=== PATIENT | male | born 1935 | race Caucasian/White ===

== ENCOUNTER 2016-10-16 09:01 | Inpatient (IN) | payer MEDICARE ==
[2016-10-16] VITALS (13 sets, daily range): BP systolic 121–174; BP diastolic 57–81; PULSE 47–66; RESP 18–20; TEMP 97.4–98.2; O2SAT 96–100
[~2016-10-16] VITALS: Ht 182.9 cm; Wt 83.3 kg
[~2016-10-16 09:01] MED LIST: ASPI81 PO; ATEN-100 PO; CALTTAB PO; FURO20 PO; GALA4 PO; GLUCTAB PO; LOSA25TA31 PO; MAGN400T PO; POTA-243 PO; PROP1TAB PO; PROT40TA PO; TAB-TAB PO; TAMS0.4C67 PO
[2016-10-16] MEDS ORDERED: SODIUM CHLORIDE 0.9% FLUSH 5 ML FLUSH IVF PRN (10:00)
[2016-10-16 10:17] LABS: BASOPHIL % 0.7 % (0.0-2.0); EOSINOPHIL # 0.1 TH/MM3 (0-0.4); HEMATOCRIT 38.3 % (39.0-51.0); HEMO FLAGS DIFF FINAL; LYMPH % 14.7 % (9.0-44.0); LYMPHOCYTE # 0.8 TH/MM3 (1.0-4.8); MEAN CELL VOLUME 87.4 FL (80.0-100.0); MEAN CORPUSCULAR HEMOGLOBIN 29.3 PG (27.0-34.0); MEAN CORPUSCULAR HGB CONC 33.5 % (32.0-36.0); NEUT % 75.6 % (16.0-70.0); PLATELET COUNT 159 TH/MM3 (150-450); RED BLOOD COUNT 4.38 MIL/MM3 (4.50-5.90); RED CELL DISTRIBUTION WIDTH 13.3 % (11.6-17.2); WHITE BLOOD COUNT 5.3 TH/MM3 (4.0-11.0)
[2016-10-16 10:25] LABS: PROTHROMBIN TIME - PATIENT 11.3 SEC (9.8-11.6)
--- NOTE | 2016-10-16 10:30 | RADRPT ---
EXAM DATE/TIME: 10/16/2016 10:05 [facility] COMPARISON: CT BRAIN W/O CONTRAST, February 12, 2016, 15:57. INDICATIONS : Dizziness. Confusion. Chest pressure. Evaluate for cerebral vascular accident. RADIATION DOSE: 56.38 CTDIvol (mGy) MEDICAL HISTORY : Cardiovascular disease. Aneurysm, abdominal. Diabetes mellitus type 2.Hypertension. SURGICAL HISTORY : None. ENCOUNTER: Initial ACUITY: 1 day PAIN SCALE: 0/10 LOCATION: cranial TECHNIQUE: Multiple contiguous axial images were obtained of the head. Using automated exposure control and adj ustment of the mA and/or kV according to patient size, radiation dose was kept as low as reasonably a chievable to obtain optimal diagnostic quality images. FINDINGS: CEREBRUM: There is mild cerebral atrophy. Ventricles are normal in size. There is mild periventricular white ma tter low-attenuation that is stable. No evidence of midline shift, mass lesion, hemorrhage or acute infarction. No extra-axial fluid collections are seen. POSTERIOR FOSSA: The cerebellum and brainstem are intact. The 4th ventricle is midline. The cerebellopontine angle i s unremarkable. EXTRACRANIAL: The visualized portion of the orbits is intact. SKULL: The calvaria is intact. No evidence of skull fracture. CONCLUSION: Stable noncontrast head CT. No acute intracranial abnormality is identified. Darrian Deutsch MD on October 16, 2016 at 10:26 Board Certified Radiologist. This report was verified electronically.
[2016-10-16 10:32] LABS: POTASSIUM 4.1 MEQ/L (3.5-5.1)
--- NOTE | 2016-10-16 10:40 | PD ---
HPI Chief Complaint: Dizziness Time Seen by Provider: 09:43 Travel History International Travel<30 days: No Contact w/Intl Traveler<30days: No Traveled to known affect area: No History of Present Illness HPI 81-year-old male came to the emergency room brought by his with history of chest pressure radiating to his neck and some dizziness. This started this morning. His says he has history of dementia and every now and then complains of dizziness. He requires a cane to ambulate. However the chest pressure was different. He has history of coronary artery disease with quadruple bypass that was done about 4 years ago. His color looked okay. He seemed a little more confused than his usual. was concerned and called patient's janitorial assistant but was unable to get anybody. She called the primary care doctor's office and the nurse asked him to come to the emergency room. Here patient is awake and at his baseline as per the . Vital signs are stable. Is not complaining of any pain currently. He knows where he is but not fully oriented to the time. Unknown aggravating or relieving factors. PFSH Past Medical History Narrative Medical List of his past medical, surgical, social and family history was reviewed from the nursing note. Hx Anticoagulant Therapy: Yes AAA: Yes Cardiovascular Problems: Yes (BYPASS) Chemotherapy: No Cerebrovascular Accident: No Diabetes: Yes Patient Takes Glucophage: Yes (METFROMIN) Diminished Hearing: Yes (BILATERAL ) Endocrine: Yes (DIABETES) Gastrointestinal Disorders: No Genitourinary: No Hypertension: Yes Immune Disorder: No Musculoskeletal: No Neurologic: No Psychiatric: Yes (ETOH ABUSE) Reproductive: No Respiratory: Yes Immunizations Current: Yes Myocardial Infarction: Yes Past Surgical History Cardiac Surgery: Yes (BYPASS ) Pacemaker: No Tonsillectomy: Yes Other Surgery: No Social History Alcohol Use: No Tobacco Use: No Substance Use: No Allergies-Medications (Allergen,Severity, Reaction): Coded Allergies: Scopolamine (Verified Allergy, Severe, NAUSEA/VOMITING, 10/16/16) Omeprazole (Verified Allergy, Unknown, 10/16/16) Xanax (Verified Allergy, Unknown, 10/16/16) POSSIBLE CONFUSION Epinephrine (Verified Adverse Reaction, Severe, SEVERE SHAKING, 10/16/16) Comments List of his allergies are reviewed from the nursing note. Reported Meds & Prescriptions Reported Meds & Active Scripts Active Reported Aspir-81 (Aspirin) 81 Mg Tabdr 81 Mg PO HS Calcium 600 + D (Calcium Carbonate-Vitamin D) 600-400 Mg-Unit Tab 1 Tab PO BID Finasteride 5 Mg Tab 5 Mg PO DAILY Do not crush. Lasix (Furosemide) 20 Mg Tab 20 Mg PO DAILY Galantamine (Galantamine Hydrobromide) 8 Mg Tab 8 Mg PO BID Losartan (Losartan Potassium) 50 Mg Tab 50 Mg PO HS Magnesium Oxide 400 Mg Tab 400 Mg PO DAILY Metformin (Metformin HCl) 500 Mg Tab 500 Mg PO DAILY With a meal Multi Vitamin (Multiple Vitamin) 1 Tab Tab 1 Tab PO DAILY Pantoprazole (Pantoprazole Sodium) 40 Mg Tab 40 Mg PO DAILY K-Tab (Potassium Chloride) 20 Meq Tab 20 Meq PO DAILY Tamsulosin (Tamsulosin HCl) 0.4 Mg Cap 0.4 Mg PO HS Clopidogrel (Clopidogrel Bisulfate) 75 Mg Tab 75 Mg PO DAILY Narrative Medication List of his home medications reviewed from the nursing note. Review of Systems Except as stated in HPI: all other systems reviewed are Neg Physical Exam Narrative GENERAL: Awake, alert, elderly, no obvious distress SKIN: Warm and dry. HEAD: Atraumatic. Normocephalic. EYES: Pupils equal and round. No scleral icterus. No injection or drainage. ENT: No nasal bleeding or discharge. Mucous membranes pink and moist. NECK: Trachea midline. No JVD. CARDIOVASCULAR: Regular rate and rhythm. No murmur appreciated. RESPIRATORY: No accessory muscle use. Clear to auscultation. Breath sounds equal bilaterally. GASTROINTESTINAL: Abdomen soft, non-tender, nondistended. Hepatic and splenic margins not palpable. MUSCULOSKELETAL: No obvious deformities. No clubbing. No cyanosis. No edema. NEUROLOGICAL: Awake and alert. No obvious cranial nerve deficits. Motor grossly within normal limits. Normal speech. PSYCHIATRIC: Appropriate mood and affect; insight and judgment normal. Data Data Last Documented VS Orders Electrocardiogram (10/16/16 ) Prothrombin Time / Inr (Pt) (10/16/16 09:55) Complete Blood Count With Diff (10/16/16 09:55) Basic Metabolic Panel (Bmp) (10/16/16 09:55) Troponin I (10/16/16 09:55) Urinalysis - C+S If Indicated (10/16/16 09:55) Ct Brain W/O Iv Contrast(Rout) (10/16/16 09:55) Chest, Single Ap (10/16/16 09:55) Ecg Monitoring (10/16/16 09:55) Iv Access Insert/Monitor (10/16/16 09:55) Oximetry (10/16/16 09:55) Sodium Chloride 0.9% Flush (Ns Flush) (10/16/16 10:00) Admit Order (Ed Use Only) (10/16/16 11:09) Labs MDM Medical Decision Making Medical Screen Exam Complete: Yes Emergency Medical Condition: Yes Medical Record Reviewed: Yes Interpretation(s) Twelve-lead EKG was reviewed by me. Normal sinus rhythm, left axis deviation, interventricular conduction delay, bradycardia, first-degree AV block, poor R- wave progression, nonspecific ST-T wave changes. Heart rate of 47 bpm. Differential Diagnosis ACS, non-STEMI, symptomatic bradycardia Narrative Course 11 AM blood test results of back and within normal limits. His mentioned that his heart rate usually runs in the 50s to 60s and 40s is low for him. It could be symptomatic bradycardia. However given his coronary artery disease history I would prefer to admit him at least for observation. I've explained this to his understands. CAT scan results came back and was within normal limit. Awaiting for the hospitalist to call back. Procedures EKG Prior to Arrival: Yes Diagnosis Primary Impression: Chest pain Qualified Code: R07.9 - Chest pain, unspecified type Additional Impressions: Dizziness Symptomatic bradycardia Admitting Information Admitting Physician Requests: Admit Scripts Atenolol 25 Mg Tab12.5 Mg PO DAILY #30 TAB Ref 0 Prov:Mitchell Myers MD 10/17/16 Kraig Restrepo MD Oct 16, 2016 10:40 Basophils (%) (Auto) 0.7 % Neutrophils # (Auto) 4.0 TH/MM3 Lymphocytes # (Auto) 0.8 TH/MM3 Monocytes # (Auto) 0.4 TH/MM3 Eosinophils # (Auto) 0.1 TH/MM3 Basophils # (Auto) 0.0 TH/MM3 CBC Comment DIFF FINAL Differential Comment Prothrombin Time 11.3 SEC Prothromb Time International 1.0 RATIO Ratio Sodium Level 135 MEQ/L Potassium Level 4.1 MEQ/L Chloride Level 99 MEQ/L Carbon Dioxide Level 29.0 MEQ/L Anion Gap 7 MEQ/L Blood Urea Nitrogen 17 MG/DL Creatinine 1.28 MG/DL Estimat Glomerular Filtration 54 ML/MIN Rate Random Glucose 104 MG/DL Calcium Level 8.9 MG/DL Troponin I 0.02 NG/ML [facility] Medical Decision Making Medical Screen Exam Complete: Yes Emergency Medical Condition: Yes Medical Record Reviewed: Yes Interpretation(s) Twelve-lead EKG was reviewed by me. Normal sinus rhythm, left axis deviation, interventricular conduction delay, bradycardia, first-degree AV block, poor R- wave progression, nonspecific ST-T wave changes. Heart rate of 47 bpm. Differential Diagnosis ACS, non-STEMI, symptomatic bradycardia Narrative Course 11 AM blood test results of back and within normal limits. His mentioned that his heart rate usually runs in the 50s to 60s and 40s is low for him. It could be symptomatic bradycardia. However given his coronary artery disease history I would prefer to admit him at least for observation. I've explained this to his understands. CAT scan results came back and was within normal limit. Awaiting for the hospitalist to call back. Procedures EKG Prior to Arrival: Yes Diagnosis Primary Impression: Chest pain Qualified Code: R07.9 - Chest pain, unspecified type Additional Impressions: Dizziness Symptomatic bradycardia Admitting Information Admitting Physician Requests: Admit Kraig Restrepo MD Oct 16, 2016 10:40 Kraig Restrepo MD Oct 16, 2016 10:40
--- NOTE | 2016-10-16 10:42 | RADRPT ---
EXAM DATE/TIME: 10/16/2016 10:10 [facility] COMPARISON: CT THORAX W/O CONTRAST, November 22, 2013, 16:39. CHEST SINGLE AP, February 12, 2016, 15:29. CHEST PA & LA T, December 17, 2013, 10:23. CHEST SINGLE AP, March 22, 2016, 17:57. INDICATIONS : Chest pains with shortness of breath. MEDICAL HISTORY : Myocardial infarction. SURGICAL HISTORY : CABG. ENCOUNTER: Initial ACUITY: 1 day PAIN SCORE: 5/10 LOCATION: Bilateral chest FINDINGS: AP views of the chest demonstrate normal-sized cardiac silhouette with calcification of the aorta. Pa tient is post median sternotomy and CABG. There is stable left chest wall changes with old rib fractu res and there is stable blunting left costophrenic sulcus. No airspace consolidation or pneumothorax is visualized. Bones demonstrate no acute finding. CONCLUSION: Stable chest x-ray with old left rib fractures and chronic left pleural thickening or scarring. No ac [place] cardiopulmonary abnormality is identified. Darrian Deutsch MD on October 16, 2016 at 10:38 Board Certified Radiologist. This report was verified electronically.
[2016-10-16] MEDS ORDERED: CLOP75TA PO (11:54)
[2016-10-16] MEDS ORDERED: TAMS0.4C4 PO (11:54)
[2016-10-16] MEDS ORDERED: POTA1TAB4 PO (11:54)
[2016-10-16] MEDS ORDERED: MULT-135 PO (11:54)
[2016-10-16] MEDS ORDERED: PANT40TA3 PO (11:54)
[2016-10-16] MEDS ORDERED: METF500T PO (11:54)
[2016-10-16 11:55] LABS: BLOOD, URINE NEG (NEG); GLUCOSE,URINE NEG (NEG); KETONE, URINE NEG (NEG); NITRITE,URINE NEG (NEG); URINE COLOR LIGHT-YELLOW (YELLW/STRAW)
[2016-10-16 11:59] LABS: COMMENT (UR) CULT NOT INDICATED; CULTURE IF INDICATED CULT NOT INDICATED
[2016-10-16] MEDS ORDERED: FINA5TAB2 PO (11:59)
[2016-10-16] MEDS ORDERED: MAGN400T2 PO (11:59)
[2016-10-16] MEDS ORDERED: GALA8TAB PO (11:59)
[2016-10-16] MEDS ORDERED: FURO1TAB62 PO (11:59)
[2016-10-16] MEDS ORDERED: CALCTAB70 PO (11:59)
[2016-10-16] MEDS ORDERED: LOSA50TA PO (11:59)
[2016-10-16] MEDS ORDERED: ASPI81TA81 PO (11:59)
[2016-10-16] MEDS ORDERED: ATEN25TA PO (11:59)
--- NOTE | 2016-10-16 13:10 | HHI.HP ---
HPI Service [facility] Hospitalists Primary Care Physician Kyle Juarez MD Admission Diagnosis symptomatic bradycardia, chest pain, dizziness Chief Complaint: Dizziness Travel History International Travel<30 Days: No Contact w/Intl Traveler <30 Da: No Traveled to Known Affected Are: No History of Present Illness Mr. Brown is an 81 y/o WM with hx of CAD/NSTEMI s/p CABG, HTN, paroxysmal atrial fibrillation, hyperlipidemia, mild based on echo in 2016, dementia and PVD with left 5th metatarsal nonhealing ulcer. Pt was brought to the ED at [facility] on with reported pressure in his chest from the neck down through his chest and dizziness. The pt has memory issues and his helps provide information. Pt denies any pressure in his chest but states that he did not sleep well last night and had a "feeling" in his chest. He complained to his about this sensation starting around 0730 this morning. This pressure lasted a few minutes and it went away on its own. He states that when he had his previous heart attack that he never had chest pain just a strange feeling at that time as well. Pts states that he also had dizziness this morning with difficulty ambulating. This occurred when he was getting up out of bed. He did not feel like the room was spinning. Feels that it was more of a lightheadedness. He has had issues with this lightheadedness periodically in the past. He uses a cane when ambulating when he needs to. Pt denies any nausea or vomiting, no diaphoresis, no SOB. Pt follows with Dr. Salmeron for Cardiology. Pt was started on Plavix around 1 month ago for PVD. Pt was noted to be bradycardic in the ED with HR in the 40's. His last echocardiogram was in 10/2015. He has been on Atenolol 25mg po daily for quite some time. Review of Systems Constitutional: COMPLAINS OF: Dizziness, DENIES: Diaphoretic episodes, Fever, Chills, Night Sweats Eyes: DENIES: Vision loss Ears, nose, mouth, throat: DENIES: Tinnitus, Hearing loss, Vertigo, Running Nose, Epistaxis Respiratory: DENIES: Cough, Shortness of breath Cardiovascular: COMPLAINS OF: Chest pain (chest pressure), DENIES: Palpitations, Dyspnea on Exertion, Lower Extremity Edema Gastrointestinal: DENIES: Abdominal pain, Constipation, Nausea, Vomiting, Difficulty Swallowing Genitourinary: DENIES: Hematuria, Dysuria Musculoskeletal: DENIES: Joint pain, Neck pain Integumentary: DENIES: Rash Hematologic/lymphatic: COMPLAINS OF: Bruising Neurologic: DENIES: Headache Psychiatric: COMPLAINS OF: Confusion (baseline dementia) Past Family Social History Past Medical History CAD/NSTEMI s/p CABG HTN Atrial fibrillation, paroxysmal Hyperlipidemia , reported as mild on 2D echo in10/2015 PVD- left 5th metatarsal ulcer, non-healing BPH Carotid artery disease Dementia Diabetes mellitus GERD CKD 2D echo (10/21/2015): - LV wall thickness is mildly increased - Estimated EF 55-60% - LA is mildly increased - Mildly dilated aortic annulus - Trace mitral regurg - Diffuse calcification of the aortic valve - Mild aortic valve stenosis - Trace tricuspid regurg Past Surgical History CABG x 4 on 11/25/13 Exploratory lap and cecostomy tube in 11/[address] Alva Tonsillectomy with adenoidectomy Elective circumcision Reported Medications Aspir-81 (Aspirin) 81 Mg Tabdr 81 Mg PO HS Atenolol 25 Mg Tab 25 Mg PO DAILY Calcium 600 + D (Calcium Carbonate-Vitamin D) 600-400 Mg-Unit Tab 1 Tab PO BID Finasteride 5 Mg Tab 5 Mg PO DAILY Do not crush. Lasix (Furosemide) 20 Mg Tab 20 Mg PO DAILY Galantamine (Galantamine Hydrobromide) 8 Mg Tab 8 Mg PO BID Losartan (Losartan Potassium) 50 Mg Tab 50 Mg PO HS Magnesium Oxide 400 Mg Tab 400 Mg PO DAILY Metformin (Metformin HCl) 500 Mg Tab 500 Mg PO DAILY With a meal Multi Vitamin (Multiple Vitamin) 1 Tab Tab 1 Tab PO DAILY Pantoprazole (Pantoprazole Sodium) 40 Mg Tab 40 Mg PO DAILY K-Tab (Potassium Chloride) 20 Meq Tab 20 Meq PO DAILY Tamsulosin (Tamsulosin HCl) 0.4 Mg Cap 0.4 Mg PO HS Clopidogrel (Clopidogrel Bisulfate) 75 Mg Tab 75 Mg PO DAILY Allergies: Coded Allergies: Scopolamine (Verified Allergy, Severe, NAUSEA/VOMITING, 10/16/16) Omeprazole (Verified Allergy, Unknown, 10/16/16) Xanax (Verified Allergy, Unknown, 10/16/16) POSSIBLE CONFUSION Epinephrine (Verified Adverse Reaction, Severe, SEVERE SHAKING, 10/16/16) Family History Noncontributory Social History Hx of tobacco use, smoked daily for about 20 years, quit around age 38 Pt is and lives with his spouse locally. Physical Exam Vital Signs Vital Signs Date Time Temp Pulse Resp B/P Pulse Ox O2 Delivery O2 Flow Rate FiO2 10/16/16 09:56 98.2 47 18 171/74 99 Room Air 10/16/16 09:50 47 18 100 Room Air 10/16/16 09:04 97.4 52 20 128/57 98 Room Air Physical Exam GENERAL: This is a well-nourished, well-developed patient, in no apparent distress. HEENT: Atraumatic. Normocephalic. No temporal or scalp tenderness. No scleral icterus. Airway patent. NECK: Trachea midline, supple, nontender. CARDIO: Regular. 10/16 systolic murmur at the which radiates to the axilla RESP: CTA bilaterally. No wheezes, rales, or rhonchi. ABD: +BS, soft, non-tender, nondistended. EXT: Extremities without clubbing, cyanosis, or edema. NEURO: Awake and alert. Motor and sensory grossly within normal limits. Normal speech. Laboratory Laboratory Tests Test 10/16/16 10/16/16 10:00 11:16 White Blood Count 5.3 Red Blood Count 4.38 Hemoglobin 12.8 Hematocrit 38.3 Mean Corpuscular Volume 87.4 Mean Corpuscular Hemoglobin 29.3 Mean Corpuscular Hemoglobin 33.5 Concent Red Cell Distribution Width 13.3 Platelet Count 159 Mean Platelet Volume 8.5 Neutrophils (%) (Auto) 75.6 Lymphocytes (%) (Auto) 14.7 Monocytes (%) (Auto) 8.0 Eosinophils (%) (Auto) 1.0 Basophils (%) (Auto) 0.7 Neutrophils # (Auto) 4.0 Lymphocytes # (Auto) 0.8 Monocytes # (Auto) 0.4 Eosinophils # (Auto) 0.1 Basophils # (Auto) 0.0 CBC Comment DIFF FINAL Differential Comment Prothrombin Time 11.3 Prothromb Time International 1.0 Ratio Sodium Level 135 Potassium Level 4.1 Chloride Level 99 Carbon Dioxide Level 29.0 Anion Gap 7 Blood Urea Nitrogen 17 Creatinine 1.28 Estimat Glomerular Filtration 54 Rate Random Glucose 104 Calcium Level 8.9 Troponin I 0.02 Urine Color LIGHT-YELLOW Urine Turbidity CLEAR Urine pH 8.0 Urine Specific [place] 1.010 Urine Protein NEG Urine Glucose (UA) NEG Urine Ketones NEG Urine Occult Blood NEG Urine Nitrite NEG Urine Bilirubin NEG Urine Urobilinogen LESS THAN 2.0 Urine Leukocyte Esterase NEG Urine RBC LESS THAN 1 Urine WBC LESS THAN 1 Microscopic Urinalysis Comment CULT NOT INDICATED Result Diagram: 10/16/16 1000 10/16/16 1000 Imaging Last Impressions Head CT 10/16/16 0955 Signed Impressions: Service Date/Time: Sunday, October 16, 2016 10:05 - CONCLUSION: Stable noncontrast head CT. No acute intracranial abnormality is identified. Darrian Deutsch MD Chest X-Ray 10/16/16 09 Signed Impressions: Service Date/Time: Sunday, October 16, 2016 10:10 - CONCLUSION: Stable chest x-ray with old left rib fractures and chronic left pleural thickening or scarring. No acute cardiopulmonary abnormality is identified. Darrian Deutsch MD Septic Shock Reassessment Heart: Regular rate and rhythm Lungs: Clear Skin: Warm Assessment and Plan Problem List: (1) Chest pain Status: Acute Plan: - Pt admitted with chest pressure and dizziness upon standing. - His chest pressure resolved on its own and lasted only a few minutes. The pts was concerned because he had chest pressure when he had his previous NSTEMI and CABG in 2013. - First set of CE are negative. - Serial CE and EKGs - Pt with noted bradycardia into the 40's, outpt records indicate HR typically in the 50-60's. - Hold Atenolol - Cont. Cozaar - Consult Cardiology - Check 2D echo - Telemetry - Consider Lexiscan - Supportive care - DVT prophylaxis with SCDs (2) Dizziness Status: Acute Plan: - Pt has had intermittent issues with dizziness which seems to be more positional related - ?Symptomatic bradycardia vs. vertigo vs. other - political director - Hold BB - If no improvement consider antivert (3) Symptomatic bradycardia Status: Acute Plan: - See above. (4) DM type 2 (diabetes mellitus, type 2) Status: Chronic Plan: - Hold OHA - Novolog SSI - Accu checks (5) HTN (hypertension) Status: Chronic Plan: - BB on hold due to bradycardia - Cont. Cozaar (6) Hyperlipidemia Status: Chronic Plan: - Pt unable to tolerate statins (7) CAD (coronary artery disease) Status: Chronic Plan: - pt with hx of CAD/NSTEMI s/p CABG x 4 in 2013 (8) PVD (peripheral vascular disease) Status: Acute Plan: - Pt recently started on Plavix for presumed small vessel PVD with non healing 5th metatarsal ulceration Assessment and Plan Patient examined. Assessment and plan formulated with Beba Goodwin PA-C. I agree with the above. pt complained of chest pressure and dizziness. says these were same sxs as before his bypass in past. more bradycardic to 40s in ED which is new. dizzy upon sitting up. echo. lexiscan. tele. cardiology. hold bb. Problem Qualifiers (1) Chest pain: Qualified Code: R07.9 - Chest pain, unspecified type Beba Goodwin Oct 16, 2016 13:10 Mitchell Myers MD Oct 16, 2016 20:37
[2016-10-16] MEDS ORDERED: ACETAMINOPHEN 325 MG TAB PO PRN (13:15)
[2016-10-16] MEDS ORDERED: ENALAPRILAT 1.25 MG/ML VIAL IV PUSH PRN (13:15)
[2016-10-16] MEDS ORDERED: cloNIDine HCL 0.1 MG TAB PO PRN (13:15)
[2016-10-16] MEDS ORDERED: ONDANSETRON HCL 4 MG/2 ML VIAL IV PRN (13:15)
[2016-10-16] MEDS ORDERED: GLUCAGON 1 MG/ML VIAL OTHER PRN (13:45)
[2016-10-16] MEDS ORDERED: DEXTROSE 50% IN WATER 50 ML VIAL(D50) IV PUSH PRN (13:45)
[2016-10-16] MEDS ORDERED: SODIUM CHLORIDE 0.9% FLUSH 5 ML FLUSH IV PRN (15:15)
--- NOTE | 2016-10-16 15:54 | MB ---
cc: CAT PERRY MD DATE OF CONSULTATION: 10/16/2016 HISTORY OF PRESENT ILLNESS This is a 78-year-old gentleman who is admitted to the hospital for being lightheaded and dizziness. He has a history of coronary artery disease with bypass grafting to 2013. He since that time has developed dementia and really is unable to give much history and most of his history comes from his who is at his bedside. He has been doing well until last night when he complained of not sleeping very well following a nosebleed. He woke this morning and apparently was very unsteady on his feet, according to his with pressure in both his sinuses, jaw, neck and chest area. This tightness persisted for an uncertain period of time but she mostly noted that he was very unsteady on his feet and unable to keep his balance. She checked his blood pressure and pulse which were 150/70 and 50, respectively, which is not unusual for him. Because of his chest tightness, she called both our office and primary care's office and they suggested coming to the hospital. Since admission to the hospital, initial troponin and EKG are normal. His pulse and blood pressure have been well maintained. PAST MEDICAL HISTORY Apart from above, significant for hypertension and hyperlipidemia. ALLERGIES None. PHYSICAL EXAMINATION GENERAL: He is awake and alert. He is in no acute distress. VITAL SIGNS: Blood pressure is 150/70, pulse 50 and regular. NECK: There is no neck vein distension. Carotids are normal. LUNGS: Clear. CARDIOVASCULAR: Exam reveals a regular rate and rhythm with no murmur or gallop noted. EXTREMITIES: Reveal no edema. ASSESSMENT The patient has had some chest tightness which is somewhat atypical. He certainly has had no exertional discomfort and his initial electrocardiogram is normal. Not sure of the etiology of his lightheadedness and dizziness but pulse and blood pressure seem to be stable. Certainly watch him overnight with serial troponins and if negative we will probably plan on doing a Lexiscan in the morning. MD CONOR Tripathi/MELISSAL /3:12 PM /3:40 PM
[2016-10-16] MEDS: INSULIN ASPART SUPPLEMENTAL SCALE SQ SCH ×2 (16:00→20:44)
--- NOTE | 2016-10-16 17:11 | EKG ---
Date Performed: 10/16/2016 Time Performed: 09:49:42 PTAGE: 81 years EKG: SINUS BRADYCARDIA WITH FIRST DEGREE AV BLOCK MARKED LEFT AXIS DEVIATION INTRAVENTRICULAR CO NDUCTION DELAY POSSIBLE ANTEROSEPTAL MYOCARDIAL INFARCTION ABNORMAL ECG Compared to prior tracing no significant change PREVIOUS TRACING : 03/22/2016 17.42 DOCTOR: Enmanule Barker Interpretating Date/Time 10/16/2016 17:10:38
[2016-10-16] MEDS: GALANTAMINE HYDROBROMIDE 4 MG TAB PO SCH (20:41)
[2016-10-16] MEDS: SODIUM CHLORIDE 0.9% FLUSH 5 ML FLUSH IV SCH (20:41)
[2016-10-16] MEDS ORDERED: ASPIRIN EC 81 MG TABEC PO SCH (21:00)
[2016-10-16] MEDS ORDERED: TAMSULOSIN HCL 0.4 MG CAP PO SCH (21:00)
[2016-10-16] MEDS ORDERED: LOSARTAN 50 MG TAB PO SCH (21:00)
[2016-10-16 22:45] LABS: CREATINE KINASE 165 U/L (39-308)
[2016-10-17] VITALS (15 sets, daily range): BP systolic 118–140; BP diastolic 59–75; PULSE 43–96; RESP 16–20; TEMP 96–97.5; O2SAT 97–100
[2016-10-17] MEDS: INSULIN ASPART SUPPLEMENTAL SCALE SQ SCH ×2 (05:29→11:59)
--- NOTE | 2016-10-17 08:16 | HHI.PR ---
Subjective Remarks denies cp or dizziness. Objective Vitals dementia heart reg lung cta abd s/nt ext no edema Vital Signs Date Time Temp Pulse Resp B/P Pulse Ox O2 Delivery O2 Flow Rate FiO2 10/17/16 07:40 Room Air 10/17/16 06:05 52 10/17/16 05:10 56 10/17/16 04:07 50 10/17/16 03:01 55 10/17/16 03:01 97.5 58 18 137/59 97 10/17/16 02:00 56 10/17/16 01:00 67 10/17/16 00:01 43 10/16/16 23:01 97.9 54 18 142/74 100 10/16/16 23:01 65 10/16/16 22:01 52 10/16/16 21:01 54 10/16/16 20:01 54 10/16/16 19:01 97.6 58 18 156/62 100 10/16/16 19:01 65 10/16/16 18:00 59 10/16/16 17:00 50 10/16/16 16:30 97.7 53 18 174/81 97 10/16/16 16:00 54 10/16/16 13:44 66 18 121/65 Room Air 10/16/16 12:00 96 Room Air 10/16/16 09:56 98.2 47 18 171/74 99 Room Air 10/16/16 09:50 47 18 100 Room Air 10/16/16 09:04 97.4 52 20 128/57 98 Room Air 10/16/16 10/16/16 10/17/16 15:00 23:00 07:00 Intake Total 240 ml 240 ml Balance 240 ml 240 ml Intake Oral 240 ml 240 ml # Voids 1 1 # Bowel Movements 0 Result Diagram: 10/16/16 1000 10/16/16 1000 Imaging Last Impressions Head CT 10/16/1655 Signed Impressions: Service Date/Time: Sunday, October 16, 2016 10:05 - CONCLUSION: Stable noncontrast head CT. No acute intracranial abnormality is identified. Darrian Deutsch MD Chest X-Ray 10/16/16 09 Signed Impressions: Service Date/Time: Sunday, October 16, 2016 10:10 - CONCLUSION: Stable chest x-ray with old left rib fractures and chronic left pleural thickening or scarring. No acute cardiopulmonary abnormality is identified. Darrian Deutsch MD A/P Problem List: (1) Chest pain Status: Acute Plan: - Pt admitted with chest pressure and dizziness upon standing. - His chest pressure resolved on its own and lasted only a few minutes. The pts was concerned because he had chest pressure when he had his previous NSTEMI and CABG in 2014. - Pt with noted bradycardia into the 40's, outpt records indicate HR typically in the 50-60's. currently denies cp or dizziness. ce negative so far. - Hold Atenolol -cardiology following - Check 2D echo - Telemetry -lexiscan today addendum: nely noted. notified dr martinez of result. he says d/c home and f /u dr del rio. will lower bb to 12.5mg. pcp f/u sunday. (2) Dizziness Status: Acute Plan: - Pt has had intermittent issues with dizziness which seems to be more positional related - ?Symptomatic bradycardia vs. vertigo vs. 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 (4) DM type 2 (diabetes mellitus, type 2) Status: Chronic Plan: - Hold OHA - Novolog SSI - Accu checks (5) HTN (hypertension) Status: Chronic Plan: - BB on hold due to bradycardia - Cont. Cozaar (6) Hyperlipidemia Status: Chronic Plan: - Pt unable to tolerate statins (7) CAD (coronary artery disease) Status: Chronic Plan: - pt with hx of CAD/NSTEMI s/p CABG x 4 in 2013 (8) PVD (peripheral vascular disease) Status: Acute Plan: - Pt recently started on Plavix for presumed small vessel PVD with non healing 5th metatarsal ulceration Problem Qualifiers (1) Chest pain: Qualified Code: R07.9 - Chest pain, unspecified type Mitchell Myers MD Oct 17, 2016 08:16
[2016-10-17] MEDS: SODIUM CHLORIDE 0.9% FLUSH 5 ML FLUSH IV SCH (08:20)
[2016-10-17] MEDS: GALANTAMINE HYDROBROMIDE 4 MG TAB PO SCH (08:20)
[2016-10-17] MEDS ORDERED: FINASTERIDE 5 MG TAB PO SCH (09:00)
[2016-10-17] MEDS ORDERED: CLOPIDOGREL 75 MG TAB PO SCH (09:00)
[2016-10-17] MEDS ORDERED: PANTOPRAZOLE SOD 40 MG DELAYED RELEASE TAB PO SCH (09:00)
[2016-10-17] MEDS ORDERED: REGADENOSON INJ 0.4 MG/5 ML SYR ONE (09:50)
--- NOTE | 2016-10-17 11:27 | EKG ---
Date Performed: 10/16/2016 Time Performed: 21:53:20 PTAGE: 81 years EKG: Sinus bradycardia. Left axis deviation RBBB with left anterior fascicular block Possible an teroseptal infarct - age undetermined Abnormal ECG NO PREVIOUS TRACING DOCTOR: Russell Rose Interpretating Date/Time 10/17/2016 11:25:25
--- NOTE | 2016-10-17 12:19 | RADRPT ---
EXAM DATE/TIME: 10/17/2016 08:54 [facility] COMPARISON: No previous studies available for comparison. INDICATIONS : Substernal chest pain with lightheaded and dizziness. Prior myocardial infarction and CABG. Angina. C oronary artery disease. DOSE: 27.1 mCi Tc99m Myoview at stress. 8.1 mCi Tc99m Myoview at rest. 0.4 mg Lexiscan STRESS SYMPTOMS: No symptoms. EJECTION FRACTION: 59% MEDICAL HISTORY : Hypertension. Diabetes mellitus type 2. Myocardial infarction. SURGICAL HISTORY : Tonsillectomy. CABG ENCOUNTER: Initial ACUITY: 1 day PAIN SCALE: 6/10 LOCATION: Substernal chest TECHNIQUE: The patient underwent pharmacologic stress with infusion of prescribed dose. Continuous ECG tracing was monitored during stress. Gated SPECT imaging was performed after stress and conventional SPECT i maging was performed at rest. The examination was performed on a SPECT/CT scanner, both attenuation and non-corrected datasets were reviewed. FINDINGS: DISTRIBUTION: The maximum perfused segment at stress is in the anterior septal wall. PERFUSION STUDY: Minimal reversibility and a small defect along the septum in the mid myocardium. GATED STUDY: There is some hypokinesia along the septum.. CONCLUSION: 1. Small reversible defect along the septum the myocardium could be an area of old infarct with phil- infarct ischemia. 2. Normal ejection fraction. RISK CATEGORY: Low (<1% Annual Mortality Rate) Iban Clemente MD on October 17, 2016 at 12:02 Board Certified Radiologist. This report was verified electronically.
--- NOTE | 2016-10-17 13:09 | EKG ---
Date Performed: 10/16/2016 Time Performed: 17:02:02 PTAGE: 81 years EKG: Sinus bradycardia with 1st degree A-V block Left axis deviation RBBB with left anterior fas cicular block Possible anteroseptal infarct - age undetermined Abnormal ECG PREVIOUS TRACING : 10/09/2016 13.20 No change from previous tracing noted. DOCTOR: Russell Rose Interpretating Date/Time 10/17/2016 13:08:14
[2016-10-17] MEDS ORDERED: ATEN25TA PO (16:06)
--- NOTE | 2016-10-17 16:08 | HHI.DCPOC ---
Discharge Care Plan Diagnosis: (1) Symptomatic bradycardia (2) Chest pain (3) Hypertension (4) DM type 2 (diabetes mellitus, type 2) (5) CAD (coronary artery disease) Goals to Promote Your Health * To prevent worsening of your condition and complications * To maintain your health at the optimal level Directions to Meet Your Goals Take your medications as prescribed Follow your dietary instruction Follow activity as directed Keep your appointments as scheduled Take your immunizations and boosters as scheduled If your symptoms worsen call your PCP, if no PCP go to Urgent Care Center or Emergency Room Smoking is Dangerous to Your Health. Avoid second hand smoke Call the 24-hour hour crisis hotline for domestic abuse at Mitchell Myers MD Oct 17, 2016 16:08
[2016-10-17] MEDS ORDERED: PILL SPLITTER OTHER PRN (16:15)
[2016-10-17] MEDS ORDERED: ATENOLOL 25 MG TAB PO ONE (16:15)
--- NOTE | 2016-10-17 17:09 | EC ---
Study Study Date:10/17/2016 STUDY CONCLUSIONS SUMMARY - Left ventricle: The cavity size was normal. Wall thickness was normal. Systolic function was normal. The estimated ejection fraction was in the range of 55% to 60%. Wall motion was normal; there were no regional wall motion abnormalities. - Aortic valve: Valve area: 1.8cm^2 (Vmax). - Mitral valve: Mild regurgitation. - Tricuspid valve: Mild regurgitation. If LV function is below 40, please consider prescribing an ACEI or ARB or document rationale for non-use. PROCEDURE DATA STUDY STATUS: Elective. Procedure: Transthoracic echocardiography. Image quality was good. Scanning was performed from the parasternal, apical, and subcostal acoustic windows. Study completion: The patient tolerated the procedure well. Transthoracic echocardiography. M-mode, complete 2D, complete spectral Doppler, and color Doppler. Height: Height: 72in. Weight: Weight: 188.6lb. Body mass index: BMI: 25.6kg/m^2. Body surface area: BSA: 2.08m^2. Patient status: Inpatient. CARDIAC ANATOMY LEFT VENTRICLE: The cavity size was normal. Wall thickness was normal. Systolic function was normal. The estimated ejection fraction was in the range of 55% to 60%. Wall motion was normal; there were no regional wall motion abnormalities. AORTIC VALVE: Trileaflet; normal thickness leaflets. Doppler: Transvalvular velocity was within the normal range. There was no stenosis. No regurgitation. Valve area: 1.8cm^2 (Vmax). Indexed valve area: 0.87cm^2/m^2 (Vmax). Mean gradient: 17mm Hg (S). Peak gradient: 13mm Hg (S). AORTA: Aortic root: The aortic root was normal in size. MITRAL VALVE: Structurally normal valve. Doppler: Transvalvular velocity was within the normal range. There was no evidence for stenosis. Mild regurgitation. Peak gradient: 2mm Hg (D). LEFT ATRIUM: The atrium was normal in size. RIGHT VENTRICLE: The cavity size was normal. Wall thickness was normal. PULMONIC VALVE: Doppler: Transvalvular velocity was within the normal range. There was no evidence for stenosis. No regurgitation. TRICUSPID VALVE: Structurally normal valve. Doppler: Transvalvular velocity was within the normal range. Mild regurgitation. PULMONARY ARTERY: The main pulmonary artery was normal-sized. Systolic pressure was within the normal range. RIGHT ATRIUM: The atrium was normal in size. PERICARDIUM: There was no pericardial effusion. SYSTEMIC VEINS: Inferior vena cava: The vessel was normal in size. Patient weight: 188.6lb _Ejection fraction:_ 65-75% _Fractional shortening:_ 32% up to 5Kg 5-11.5Kg 11.6-22.9Kg 23-45Kg 45-57Kg Aortic Root 7-13 <17 13-22 17-27 17-27 LA diam 6-13 <23 24-38 33-47 37-40 RVID 10-17 7-15 7-15 7-18 8-17 LVIDd 12-22 <32 24-38 33-47 37-40 LVPW 2-4 3-6 5-7 6-8 7-8 IVS 2-4 3-6 5-7 6-8 7-8 BASIC MEASUREMENTS ADULT NORMAL Left ventricle LV internal dimension, ED, chordal 43.6 mm 43-52 level, PLAX LV internal dimension, ES, chordal 28.4 mm 23-38 level, PLAX Fractional shortening, chordal level, 35 % >29 PLAX LV posterior wall thickness, ED 9.91 mm IVS/LVPW ratio, ED 1.05 <1.3 Ventricular septum Septal thickness, ED 10.4 mm Aortic valve Leaflet separation 18 mm 15-26 Aorta Ascending aorta anterior-posterior 40 mm diameter, S BASIC MEASUREMENTS ADULT NORMAL Aortic valve Leaflet separation 18 mm 15-26 Aorta Root diameter, ED 23 mm 20-37 Left atrium Anterior-posterior dimension, ES 40 mm 19-40 Anterior-posterior dimension index, ES 1.92 cm/m^2 <2.2 LA/aortic root ratio 1.74 DOPPLER MEASUREMENTS ADULT NORMAL Main pulmonary artery Pressure, S 25 mm Hg =30 Pressure, ED 14 mm Hg Aortic valve Peak velocity, S 178 cm/s Mean velocity, S 175 cm/s VTI, S 51.4 cm Mean gradient, S 17 mm Hg Peak gradient, S 13 mm Hg Valve area, Vmax 1.8 cm^2 Valve area index, Vmax 0.87 cm^2/m^2 Mitral valve Peak E-wave velocity 74.2 cm/s Peak A-wave velocity 130 cm/s Deceleration time 219 ms 150-230 Peak gradient, D 2 mm Hg Peak E/A ratio 0.6 Maximal regurgitant velocity 238 cm/s Tricuspid valve Regurgitant peak velocity 242 cm/s Peak RV-RA gradient, S 23 mm Hg Maximal regurgitant velocity 242 cm/s Systemic veins Estimated CVP 10 mm Hg Right ventricle RV pressure, S *33 mm Hg <30 Pulmonic valve Peak velocity, S 144 cm/s Regurgitant velocity, ED 99.1 cm/s LEGEND: Mean values are shown as u=mean value. Asterisk (*) allen values outside specified normal range. Prepared and signed by Cristopher Menezes [id number]
== END 2016-10-17 17:01 | disposition home or self-care (01) | DRG 312 ==
LOC: NEPE 09:01 → NEDA 11:11 → HCIN 15:50
PROVIDERS: ADMIT Hospitalist; ATTEND Hospitalist
DX: I95.1 Orthostatic hypotension (principal); F03.90 Unspecified dementia, unspecified severity, without behavioral disturbance, psychotic disturbance, mood disturbance, and anxiety; R00.1 Bradycardia, unspecified; I25.10 Atherosclerotic heart disease of native coronary artery without angina pectoris; E11.9 Type 2 diabetes mellitus without complications; I10 Essential (primary) hypertension; E78.5 Hyperlipidemia, unspecified; I73.9 Peripheral vascular disease, unspecified; I48.0 Paroxysmal atrial fibrillation; N40.0 Benign prostatic hyperplasia without lower urinary tract symptoms; Z79.84 Long term (current) use of oral hypoglycemic drugs; K21.9 Gastro-esophageal reflux disease without esophagitis; I25.2 Old myocardial infarction; Z95.1 Presence of aortocoronary bypass graft; Z87.891 Personal history of nicotine dependence
CPT/HCPCS: 70450; 71010; 78452; 80048; 81001; 82550; 82948; 84484; 85025; 85610; 93005; 93017; 93306; A9502; J1815; J2785

== ENCOUNTER 2017-02-09 10:22 | Emergency (ER) | payer MEDICARE ==
[~2017-02-09] VITALS: Ht 182.9 cm; Wt 88.0 kg
[~2017-02-09 10:22] MED LIST changes: -ASPI81 PO; +ASPI81TA81 PO; -ATEN-100 PO; +ATEN25TA PO; +CALCTAB70 PO; -CALTTAB PO; +CLOP75TA PO; +FINA5TAB2 PO; +FURO1TAB62 PO; -FURO20 PO; -GALA4 PO; +GALA8TAB PO; -GLUCTAB PO; -LOSA25TA31 PO; +LOSA50TA PO; -MAGN400T PO; +MAGN400T2 PO; +METF500T PO; +MULT-135 PO; +PANT40TA3 PO; -POTA-243 PO; +POTA1TAB4 PO; -PROP1TAB PO; -PROT40TA PO; -TAB-TAB PO; +TAMS0.4C4 PO; -TAMS0.4C67 PO
[2017-02-09 10:30] VITALS: BP 130/57; PULSE 65; RESP 18; TEMP 99.2; O2SAT 100
[2017-02-09 10:34] VITALS: BP 130/57; PULSE 65; RESP 18; TEMP 99.2; O2SAT 100
[2017-02-09 10:41] VITALS: O2SAT 99
[2017-02-09] MEDS ORDERED: LORazepam 2 MG/ML VIAL IV PUSH ONE (10:45)
[2017-02-09] MEDS ORDERED: SODIUM CHLORIDE 0.9% FLUSH 5 ML FLUSH IV FLUSH PRN (10:45)
--- NOTE | 2017-02-09 10:54 | PD ---
HPI Chief Complaint: Altered Mental Status Time Seen by Provider: 10:36 Travel History International Travel<30 days: No Contact w/Intl Traveler<30days: No Traveled to known affect area: No History of Present Illness HPI The patient's 81 years old. He arrives from home by EMS. He has been suffering with agitation over the past couple of years. He follows with Dr. Gimenez of neurology. Few days ago he was started on Seroquel which only seemed to have exacerbated his agitation. Overnight the patient was fairly obsessive and agitated, reportedly changing the air-conditioning/thermostat numerous times. In the morning he was watching TV and was approached by his when he reported that he has been severely agitated over the last few days. He became uncontrollable with occasional total body seizure like episodes with no loss of consciousness and associated with bizarre yelping. Evidently a similar event occurred though much less severe a few days ago. EMS reports on scene the blood pressure was 150/70 and heart rate was 68. Fingerstick glucose was normal. PFSH Past Medical History Hx Anticoagulant Therapy: Yes AAA: Yes Chemotherapy: No Cerebrovascular Accident: No Diabetes: Yes Patient Takes Glucophage: Yes Diminished Hearing: Yes (BILATERAL ) Endocrine: Yes (DIABETES) Gastrointestinal Disorders: No Genitourinary: No Hypertension: Yes Immune Disorder: No Musculoskeletal: No Neurologic: No Psychiatric: Yes (ETOH ABUSE) Reproductive: No Respiratory: Yes Immunizations Current: Yes Myocardial Infarction: Yes Tetanus Vaccination: < 5 Years Influenza Vaccination: Yes ?: Not Past Surgical History Abdominal Surgery: Yes (CECUM SURGERY) Cardiac Surgery: Yes (BYPASS ) Pacemaker: No Tonsillectomy: Yes Other Surgery: No Social History Alcohol Use: No (QUIT 10 YEARS AGO) Tobacco Use: No (QUIT 40 YEARS AGO) Substance Use: No Allergies-Medications (Allergen,Severity, Reaction): Coded Allergies: Scopolamine (Verified Allergy, Severe, NAUSEA/VOMITING, 10/16/16) Omeprazole (Verified Allergy, Unknown, 10/16/16) Xanax (Verified Allergy, Unknown, 10/16/16) POSSIBLE CONFUSION Epinephrine (Verified Adverse Reaction, Severe, SEVERE SHAKING, 10/16/16) Reported Meds & Prescriptions Reported Meds & Active Scripts Active Ativan (Lorazepam) 0.5 Mg Tab 0.5 Mg PO Q8H PRN Reported Calcium (Oyster Shell) 500 Mg Tab 500 Mg PO BID Losartan (Losartan Potassium) 25 Mg Tab 25 Mg PO DAILY Aspir-81 (Aspirin) 81 Mg Tabdr 81 Mg PO HS Finasteride 5 Mg Tab 5 Mg PO DAILY Do not crush. Lasix (Furosemide) 20 Mg Tab 20 Mg PO DAILY Magnesium Oxide 400 Mg Tab 240 Mg PO DAILY Metformin (Metformin HCl) 500 Mg Tab 500 Mg PO DAILY With a meal Pantoprazole (Pantoprazole Sodium) 40 Mg Tab 40 Mg PO DAILY PRN K-Tab (Potassium Chloride) 20 Meq Tab 20 Meq PO DAILY Clopidogrel (Clopidogrel Bisulfate) 75 Mg Tab 75 Mg PO DAILY Review of Systems Except as stated in HPI: all other systems reviewed are Neg General / Constitutional: No: Fever Psychiatric: Positive: Anxiety Physical Exam Narrative GENERAL: 81-year-old male well-nourished well-developed agitated occasional tonic-clonic jerking type activity with no loss of consciousness SKIN: Focused skin assessment warm/dry. HEAD: Atraumatic. Normocephalic. EYES: Pupils equal and round. No scleral icterus. No injection or drainage. ENT: No nasal bleeding or discharge. Mucous membranes pink and moist. NECK: Trachea midline. No JVD. CARDIOVASCULAR: Regular rate and rhythm. No murmur appreciated. RESPIRATORY: No accessory muscle use. Clear to auscultation. Breath sounds equal bilaterally. GASTROINTESTINAL: Abdomen soft, non-tender, nondistended. Hepatic and splenic margins not palpable. MUSCULOSKELETAL: No obvious deformities. No clubbing. No cyanosis. No edema. NEUROLOGICAL: Awake and alert. No obvious cranial nerve deficits. Motor grossly within normal limits. Normal speech. PSYCHIATRIC: Agitated. Somewhat cooperative. Data Data Last Documented VS Vital Signs Date Time Temp Pulse Resp B/P Pulse Ox O2 Delivery O2 Flow Rate FiO2 02/09/17 13:05 99.2 60 18 124/62 100 Room Air Vital signs reviewed Orders Electrocardiogram (02/09/17 10:36) Complete Blood Count With Diff (02/09/17 10:36) Comprehensive Metabolic Panel (02/09/17 10:36) Creatine Kinase (Cpk) (02/09/17 10:36) Prothrombin Time / Inr (Pt) (02/09/17 10:36) Act Partial Throm Time (Ptt) (02/09/17 10:36) Troponin I (02/09/17 10:36) Thyroid Stimulating Hormone (02/09/17 10:36) Urinalysis - C+S If Indicated (02/09/17 10:36) Ct Brain W/O Iv Contrast(Rout) (02/09/17 10:36) Blood Glucose (02/09/17 10:36) Ecg Monitoring (02/09/17 10:36) Iv Access Insert/Monitor (02/09/17 10:36) Oximetry (02/09/17 10:36) Sodium Chloride 0.9% Flush (Ns Flush) (02/09/17 10:45) Drug Screen, Random Urine (02/09/17 10:36) Alcohol (Ethanol) (02/09/17 10:36) Tylenol (Acetaminophen) (02/09/17 10:36) Salicylates (Aspirin) (02/09/17 10:36) Lorazepam Inj (Ativan Inj) (02/09/17 10:45) Psych Screen (02/09/17 11:34) Labs Laboratory Tests Test 02/09/17 10:40 White Blood Count 6.0 TH/MM3 Red Blood Count 4.63 MIL/MM3 Hemoglobin 13.1 GM/DL Hematocrit 40.6 % Mean Corpuscular Volume 87.6 FL Mean Corpuscular Hemoglobin 28.3 PG Mean Corpuscular Hemoglobin 32.3 % Concent Red Cell Distribution Width 13.3 % Platelet Count 158 TH/MM3 Mean Platelet Volume 8.9 FL Neutrophils (%) (Auto) 71.9 % Lymphocytes (%) (Auto) 17.0 % Monocytes (%) (Auto) 9.0 % Eosinophils (%) (Auto) 1.6 % Basophils (%) (Auto) 0.5 % Neutrophils # (Auto) 4.3 TH/MM3 Lymphocytes # (Auto) 1.0 TH/MM3 Monocytes # (Auto) 0.5 TH/MM3 Eosinophils # (Auto) 0.1 TH/MM3 Basophils # (Auto) 0.0 TH/MM3 CBC Comment DIFF FINAL Differential Comment Prothrombin Time 11.0 SEC Prothromb Time International 1.0 RATIO Ratio Activated Partial 28.8 SEC Thromboplast Time Urine Color YELLOW Urine Turbidity CLEAR Urine pH 8.0 Urine Specific Carver 1.013 Urine Protein NEG mg/dL Urine Glucose (UA) NEG mg/dL Urine Ketones NEG mg/dL Urine Occult Blood NEG Urine Nitrite NEG Urine Bilirubin NEG Urine Urobilinogen LESS THAN 2.0 MG/DL Urine Leukocyte Esterase NEG Urine RBC LESS THAN 1 /hpf Urine WBC LESS THAN 1 /hpf Microscopic Urinalysis Comment CATH-CULT NOT IND Sodium Level 140 MEQ/L Potassium Level 3.9 MEQ/L Chloride Level 104 MEQ/L Carbon Dioxide Level 28.1 MEQ/L Anion Gap 8 MEQ/L Blood Urea Nitrogen 16 MG/DL Creatinine 1.12 MG/DL Estimat Glomerular Filtration 63 ML/MIN Rate Random Glucose 90 MG/DL Calcium Level 8.9 MG/DL Total Bilirubin 0.6 MG/DL Aspartate Amino Transf 16 U/L (AST/SGOT) Alanine Aminotransferase 21 U/L (ALT/SGPT) Alkaline Phosphatase 78 U/L Total Creatine Kinase 139 U/L Troponin I 0.02 NG/ML Total Protein 7.0 GM/DL Albumin 3.7 GM/DL Thyroid Stimulating Hormone 1.640 uIU/ML 3rd Gen Salicylates Level LESS THAN 1.7 MG/DL Urine Opiates Screen NEG Acetaminophen Level LESS THAN 2.0 MCG/ML Urine Barbiturates Screen NEG Urine Amphetamines Screen NEG Urine Benzodiazepines Screen NEG Urine Cocaine Screen NEG Urine Cannabinoids Screen NEG Ethyl Alcohol Level LESS THAN 3 MG/DL MDM Medical Decision Making Medical Screen Exam Complete: Yes Emergency Medical Condition: Yes Medical Record Reviewed: Yes Differential Diagnosis Vascular dementia, Parkinson's disease, Alzheimer's dementia, electrolyte imbalance, polypharmacy, anxiety Narrative Course CBC & BMP Diagram 02/09/17 10:40 LFTs normal Tn 0.02 TSH 1.640 Tox severino-negative APAP/Salicylates/EtOH normal Pt reassessed at approx 12pm. After 1mg of Ativan pt was found resting comfortably and in no distress. The patients results and examination findings were discussed with his . The repeat examination is unremarkable and benign. The history, exam, diagnostic testing, and current condition do not suggest any significant pathology to warrant further testing, continued ED treatment, admission, or surgical evaluation at this point. The vital signs have been stable. The patient does not have uncontrollable pain, intractable vomiting, or other significant symptoms. The patient's condition is stable and appropriate for discharge. The patient will pursue further outpatient evaluation with a primary care physician or other designated or consulting physician as indicated in the discharge instructions. The patient expressed understanding and was agreeable with this plan. Diagnosis Primary Impression: Agitation Referrals: Kyle Juarez MD 2 days Additional Instructions: You have a choice when it comes to health care, and we are glad that you chose [facility]. Hopefully, we have met your expectations on today's visit. You are welcome to return to [facility] at any time, as we are committed to meeting the health care needs of our community. Med/Other Pt SpecificInfo: Prescription(s) given Scripts Lorazepam (Ativan)0.5 Mg Tab0.5 Mg PO Q8H PRN (ANXIETY AND/OR AGITATION) #20 TAB Ref 0 Prov:Johnny Aguirre MD 02/09/17 Disposition: 01 DISCHARGE HOME Condition: Stable Johnny Aguirre MD Feb 09, 2017 10:54
[2017-02-09 11:23] LABS: AUTOMATED NEUTROPHIL # 4.3 TH/MM3 (1.8-7.7); BASOPHIL % 0.5 % (0.0-2.0); EOSINOPHIL # 0.1 TH/MM3 (0-0.4); EOSINOPHIL % 1.6 % (0.0-4.0); HEMATOCRIT 40.6 % (39.0-51.0); HEMO FLAGS DIFF FINAL; MEAN CELL VOLUME 87.6 FL (80.0-100.0); MEAN CORPUSCULAR HEMOGLOBIN 28.3 PG (27.0-34.0); MEAN CORPUSCULAR HGB CONC 32.3 % (32.0-36.0); NEUT % 71.9 % (16.0-70.0); PLATELET COUNT 158 TH/MM3 (150-450); RED BLOOD COUNT 4.63 MIL/MM3 (4.50-5.90); RED CELL DISTRIBUTION WIDTH 13.3 % (11.6-17.2)
--- NOTE | 2017-02-09 11:24 | RADRPT ---
EXAM DATE/TIME: 02/09/2017 11:03 [facility] COMPARISON: CT BRAIN W/O CONTRAST, October 16, 2016, 10:05. INDICATIONS : Altered mental status. RADIATION DOSE: 56.35 CTDIvol (mGy) MEDICAL HISTORY : Cardiovascular disease. Hypertension. SURGICAL HISTORY : None. ENCOUNTER: Initial ACUITY: 1 day PAIN SCALE: 0/10 LOCATION: cranial TECHNIQUE: Multiple contiguous axial images were obtained of the head. Using automated exposure control and adj ustment of the mA and/or kV according to patient size, radiation dose was kept as low as reasonably a chievable to obtain optimal diagnostic quality images. DICOM format image data is available electro nically for review and comparison. FINDINGS: CEREBRUM: Stable cerebral atrophy is noted. Mild stable periventricular white matter small vessel ischemic preston ges are noted. No evidence of midline shift, mass lesion, hemorrhage or acute infarction. No extra-a xial fluid collections are seen. POSTERIOR FOSSA: The cerebellum and brainstem are intact. The 4th ventricle is midline. The cerebellopontine angle i s unremarkable. EXTRACRANIAL: The visualized portion of the orbits is intact. SKULL: The calvaria is intact. No evidence of skull fracture. CONCLUSION: 1. Stable cerebral atrophy. 2. Mild stable periventricular white matter small vessel ischemic changes. 3. No acute infarct, acute hemorrhage, mass effect or extra axial fluid collections. Jensen Montoya MD on February 09, 2017 at 11:20 Board Certified Radiologist. This report was verified electronically.
[2017-02-09 11:33] LABS: AMPHETAMINE, URINE NEG (NEG); BARBITURATES, URINE NEG (NEG); COCAINE, URINE NEG (NEG)
[2017-02-09 11:36] LABS: APTT (PATIENT) 28.8 SEC (24.3-30.1)
[2017-02-09 11:38] LABS: BLOOD, URINE NEG (NEG); GLUCOSE,URINE NEG (NEG); KETONE, URINE NEG (NEG); NITRITE,URINE NEG (NEG); URINE COLOR YELLOW (YELLW/STRAW)
[2017-02-09 11:39] LABS: COMMENT (UR) CATH-CULT NOT IND; CULTURE IF INDICATED CATH CULTURE NOT IND
[2017-02-09 11:54] LABS: ANION GAP 8 MEQ/L (5-15); AST (GOT) 16 U/L (15-37); BICARBONATE 28.1 MEQ/L (21.0-32.0); BLOOD UREA NITROGEN 16 MG/DL (7-18); CHLORIDE 104 MEQ/L (98-107); GLOMERULAR FILTRATION RATE 63 ML/MIN (>89); POTASSIUM 3.9 MEQ/L (3.5-5.1); SODIUM (NA) 140 MEQ/L (136-145)
[2017-02-09 12:05] LABS: ACETAMINOPHEN LESS THAN 2.0 MCG/ML (10.0-30.0); ALKALINE PHOSPHATASE 78 U/L (45-117); ALT (GPT) 21 U/L (12-78); CREATINE KINASE 139 U/L (39-308); TOTAL BILIRUBIN ADULT 0.6 MG/DL (0.2-1.0)
[2017-02-09] MEDS ORDERED: LOSA25TA PO (12:21)
[2017-02-09] MEDS ORDERED: CALC500T35 PO (12:21)
[2017-02-09] MEDS ORDERED: LORA-392 PO (12:35)
[2017-02-09 13:05] VITALS: BP 124/62; PULSE 60; RESP 18; TEMP 99.2; O2SAT 100
--- NOTE | 2017-02-09 14:23 | EKG ---
Date Performed: 02/09/2017 Time Performed: 12:05:49 PTAGE: 81 years EKG: BASELINE ARTIFACT PRESENT. SINUS BRADYCARDIA WITH FIRST DEGREE AV BLOCK MARKED LEFT AXIS DE VIATION POSSIBLE RIGHT VENTRICULAR CONDUCTION DELAY ANTEROSEPTAL MYOCARDIAL INFARCTION ABNORMAL ECG N O SIGNIFICANT CHANGE FROM PRIOR ELECTROCARDIOGRAM. PREVIOUS TRACING : 10/16/2016 21.53 DOCTOR: Malachi He Interpretating Date/Time 02/09/2017 14:23:14
== END 2017-02-09 13:14 | disposition home or self-care (01) ==
LOC: NEPC 10:22
DX: R45.1 Restlessness and agitation (principal); R56.9 Unspecified convulsions; E11.9 Type 2 diabetes mellitus without complications; I10 Essential (primary) hypertension; I25.2 Old myocardial infarction; Z79.899 Other long term (current) drug therapy; Z79.82 Long term (current) use of aspirin; Z88.8 Allergy status to other drugs, medicaments and biological substances
CPT/HCPCS: 70450; 80053; 80307; 81001; 82550; 84443; 84484; 85025; 85610; 85730; 93005; 96374; 99285; J2060

== ENCOUNTER 2017-04-15 22:37 | Inpatient (IN) | payer MEDICARE, OTHER ==
[~2017-04-15] VITALS: Ht 180.3 cm; Wt 71.4 kg
[~2017-04-15 22:37] MED LIST changes: -ATEN25TA PO; +CALC500T35 PO; -CALCTAB70 PO; -GALA8TAB PO; +LORA-392 PO; +LOSA25TA PO; -LOSA50TA PO; -MULT-135 PO; -TAMS0.4C4 PO
[2017-04-15 23:26] VITALS: BP 155/72; PULSE 68; RESP 18; TEMP 97.8; O2SAT 100
[2017-04-15 23:30] VITALS: BP 155/72; PULSE 68; RESP 18; TEMP 97.8; O2SAT 100
[2017-04-15] MEDS ORDERED: LORA-474 PO (23:39)
[2017-04-15 23:56] LABS: AUTOMATED NEUTROPHIL # 3.9 TH/MM3 (1.8-7.7); BASOPHIL % 0.4 % (0.0-2.0); EOSINOPHIL # 0.1 TH/MM3 (0-0.4); EOSINOPHIL % 1.6 % (0.0-4.0); HEMATOCRIT 35.9 % (39.0-51.0); HEMO FLAGS DIFF FINAL; LYMPH % 19.9 % (9.0-44.0); LYMPHOCYTE # 1.1 TH/MM3 (1.0-4.8); MEAN CELL VOLUME 87.4 FL (80.0-100.0); MEAN CORPUSCULAR HEMOGLOBIN 29.3 PG (27.0-34.0); MEAN CORPUSCULAR HGB CONC 33.5 % (32.0-36.0); MONO % 11.1 % (0.0-8.0); PLATELET COUNT 173 TH/MM3 (150-450); RED CELL DISTRIBUTION WIDTH 13.5 % (11.6-17.2); WHITE BLOOD COUNT 5.8 TH/MM3 (4.0-11.0)
[2017-04-16] VITALS (7 sets, daily range): BP systolic 128–145; BP diastolic 44–99; PULSE 51–80; RESP 14–18; TEMP 98.8; O2SAT 97–100
[2017-04-16 00:16] LABS: ANION GAP 6 MEQ/L (5-15); AST (GOT) 16 U/L (15-37); BICARBONATE 29.2 MEQ/L (21.0-32.0); BLOOD UREA NITROGEN 21 MG/DL (7-18); CHLORIDE 106 MEQ/L (98-107); GLOMERULAR FILTRATION RATE 67 ML/MIN (>89); POTASSIUM 3.8 MEQ/L (3.5-5.1); SODIUM (NA) 141 MEQ/L (136-145)
[2017-04-16 00:17] LABS: ALT (GPT) 16 U/L (12-78)
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
[2017-04-16 00:27] LABS: ALKALINE PHOSPHATASE 73 U/L (45-117); TOTAL BILIRUBIN ADULT 0.4 MG/DL (0.2-1.0)
[2017-04-16] MEDS ORDERED: LORazepam 2 MG/ML VIAL IM ONE ×2 (01:30→04:15)
[2017-04-16 02:24] LABS: BLOOD, URINE NEG (NEG); GLUCOSE,URINE NEG (NEG); HYALINE CAST, URINE 1 /lpf (RARE); KETONE, URINE NEG (NEG); MUCUS URINE FEW /lpf (OCC); NITRITE,URINE NEG (NEG); URINE COLOR YELLOW (YELLW/STRAW)
[2017-04-16 02:31] LABS: COMMENT (UR) CULT NOT INDICATED; CULTURE IF INDICATED CULT NOT INDICATED
[2017-04-16] MEDS ORDERED: ACETAMINOPHEN 325 MG TAB PO PRN (12:15)
[2017-04-16] MEDS ORDERED: MAGNESIUM HYDROXIDE SUSP 30 ML CUP PO PRN (12:15)
[2017-04-16] MEDS ORDERED: ALUMINUM/MAGNESIUM/SIMETH 30 ML CUP PO PRN (12:15)
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
[2017-04-16] MEDS ORDERED: DEXTROSE 50% IN WATER 50 ML VIAL(D50) IV PRN (14:00)
[2017-04-16] MEDS ORDERED: GLUCAGON 1 MG/ML VIAL OTHER PRN (14:00)
[2017-04-16] MEDS ORDERED: cloNIDine HCL 0.1 MG TAB PO PRN (15:00)
[2017-04-16] MEDS: INSULIN ASPART SUPPLEMENTAL SCALE SQ SCH ×2 (15:56→20:44)
[2017-04-16] MEDS: traZODone HCL 50 MG TAB PO PRN (21:44)
[2017-04-17 05:42] VITALS: BP 131/58; PULSE 70; RESP 17; TEMP 98.1; O2SAT 98
[2017-04-17] MEDS: INSULIN ASPART SUPPLEMENTAL SCALE SQ SCH ×4 (06:38→21:00)
[2017-04-17 11:42] LABS: AUTOMATED NEUTROPHIL # 5.7 TH/MM3 (1.8-7.7); BASOPHIL % 0.4 % (0.0-2.0); EOSINOPHIL % 0.6 % (0.0-4.0); HEMO FLAGS DIFF FINAL; LYMPH % 10.8 % (9.0-44.0); LYMPHOCYTE # 0.8 TH/MM3 (1.0-4.8); MEAN CELL VOLUME 88.4 FL (80.0-100.0); MEAN CORPUSCULAR HEMOGLOBIN 29.5 PG (27.0-34.0); MEAN CORPUSCULAR HGB CONC 33.4 % (32.0-36.0); MONO % 8.5 % (0.0-8.0); NEUT % 79.7 % (16.0-70.0); PLATELET COUNT 165 TH/MM3 (150-450); RED CELL DISTRIBUTION WIDTH 13.4 % (11.6-17.2); WHITE BLOOD COUNT 7.1 TH/MM3 (4.0-11.0)
[2017-04-17 12:13] LABS: ANION GAP 11 MEQ/L (5-15); AST (GOT) 27 U/L (15-37); BICARBONATE 21.7 MEQ/L (21.0-32.0); BLOOD UREA NITROGEN 21 MG/DL (7-18); CHLORIDE 108 MEQ/L (98-107); GLOMERULAR FILTRATION RATE 71 ML/MIN (>89); POTASSIUM 3.4 MEQ/L (3.5-5.1); SODIUM (NA) 141 MEQ/L (136-145)
[2017-04-17 12:14] LABS: ALT (GPT) 18 U/L (12-78)
[2017-04-17 12:18] LABS: HEMOGLOBIN A1a 1.1 %; HEMOGLOBIN A1b 1.5 %; HEMOGLOBIN Ao 86.1 %; HEMOGLOBIN P3 3.5 %
[2017-04-17 12:39] LABS: ALKALINE PHOSPHATASE 72 U/L (45-117); HDL CHOLESTEROL 61.3 MG/DL (40.0-60.0); LDL CHOLESTEROL 86 MG/DL (0-99); TOTAL BILIRUBIN ADULT 1.1 MG/DL (0.2-1.0)
--- NOTE | 2017-04-17 14:26 | EKG ---
Date Performed: 04/16/2017 Time Performed: 12:16:38 PTAGE: 81 years EKG: SINUS BRADYCARDIA WITH FIRST DEGREE AV BLOCK LEFT ANTERIOR FASCICULAR BLOCK ABNORMAL ECG PREVIOUS TRACING 02/09/17 Possible anteroseptal myocardial infarction - age undetermined, but l argely unchanged from the prior tracing. DOCTOR: Marvin Jung Interpretating Date/Time 04/17/2017 14:25:04
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
--- NOTE | 2017-04-17 15:27 | HHI.PR ---
Subjective Remarks Sitting up in chair, out in the open patient area Denies any chest pain or shortness of breath Affect calm Afebrile (Barbara Davis) Objective Objective Results - Vital Signs Date Time Temp Pulse Resp B/P (MAP) Pulse Ox O2 Delivery O2 Flow Rate FiO2 04/17/17 05:42 98.1 70 17 131/58 (82) 98 04/16/17 21:01 98.8 78 16 135/99 (111) 04/16/17 16:40 78 16 135/44 (74) 04/16/17 16:20 I/O 04/16/17 04/16/17 04/16/17 04/17/17 04/17/17 04/17/17 07:00 15:00 23:00 07:00 15:00 23:00 Intake Total 270 ml 600 ml Balance 270 ml 600 ml Intake Oral 270 ml 600 ml # Voids 1 1 2 (Barbara Davis) Result Diagram: 04/17/17 1010 04/17/17 1010 ROS General: Other (Limited ROS reviewed, but denied chest pain or shortness of breath) (Barbara Davis) Physical Exam Physical Exam PHYSICAL EXAMINATION GENERAL: This is an elderly male who appears to be in no acute distress. HEAD: Normocephalic Facial features appear symmetric. OROPHARYNGEAL: Oropharynx clean without drooling NECK: Supple. CARDIAC: Regular rhythm, regular rate, S1 and S2 are heard. Soft systolic murmur LUNGS: Clear to auscultation bilaterally. No SOB ABDOMEN: Soft, nontender, bowel sounds soft EXTREMITIES: no edema. NEUROLOGICAL: Patient mood and affect calm SKIN:Warm and dry (Barbara Davis) A/P Assessment and Plan Vital signs reviewed, afebrile to transfer normal Labs reviewed, mild hypokalemia, anemia probable secondary to chronic disease History of coronary artery disease History of CABG, peripheral vascular disease, dysrhythmias which are stable now, hypertension Medications have been renewed, monitor his medical management Type 2 diabetes, takes no medications -Accu-Cheks before meals and at bedtime, sliding scale if needed Hypertension, BP stable -We will add clonidine 0.1 mg by mouth every 6 when necessary for systolic rhythm 170 and diastolic rhythm 90 Alzheimer's dementia with personality disorders, agitation ` Appreciate psyche input and psy medical management, patient currently denies any chest pain no shortness of breath, Hypokalemia mild, by mouth potassium 20 mEq given 1 today, recheck BMP in the morning Case management consultation , discharge planning when patient is stable from a psychiatric perspective. Discussed with staff discussed with Dr. Sanchez, seen on his behalf Discussed simply with patient (Barbara Davis) Assessment and Plan Patient seen and examined and as above Labs reviewed Medications reviewed Continue current management discussed with RN Potassium replacement (Lazaro Sanchez MD) Barbara Davis Apr 17, 2017 15:27 Lazaro Sanchez MD Apr 17, 2017 16:35
[2017-04-17] MEDS ORDERED: POTASSIUM CHLORIDE 20 MEQ CONTROLLED RELEASE TAB PO ONE (16:00)
[2017-04-17 16:53] VITALS: BP 142/73; PULSE 86; RESP 18; TEMP 97.8; O2SAT 100
[2017-04-17] MEDS: traZODone HCL 50 MG TAB PO PRN (21:23)
[2017-04-17] MEDS: LORazepam 2 MG/ML VIAL IM PRN (23:36)
[2017-04-18 06:34] VITALS: BP 123/58; PULSE 91; RESP 16; TEMP 98; O2SAT 98
[2017-04-18] MEDS: INSULIN ASPART SUPPLEMENTAL SCALE SQ SCH ×4 (06:43→20:29)
[2017-04-18] MEDS: LORazepam 0.5 MG TAB PO PRN ×2 (10:30→18:56)
[2017-04-18 13:39] LABS: BICARBONATE 24.5 MEQ/L (21.0-32.0); POTASSIUM 3.4 MEQ/L (3.5-5.1)
[2017-04-18 18:00] VITALS: BP 143/84; PULSE 83; RESP 18; TEMP 98.6; O2SAT 100
[2017-04-18] MEDS: LORazepam 2 MG/ML VIAL IM PRN (22:38)
[2017-04-19 05:37] VITALS: BP 137/66; PULSE 107; RESP 16; TEMP 98.3; O2SAT 98
[2017-04-19] MEDS: INSULIN ASPART SUPPLEMENTAL SCALE SQ SCH ×4 (06:43→23:23)
[2017-04-19 17:51] VITALS: BP 128/63; PULSE 99; RESP 17; TEMP 97.6; O2SAT 97
[2017-04-19] MEDS: LORazepam 0.5 MG TAB PO PRN (23:02)
[2017-04-19] MEDS: traZODone HCL 50 MG TAB PO PRN (23:02)
[2017-04-20 05:45] VITALS: BP 112/56; PULSE 85; RESP 16; TEMP 98.1; O2SAT 97
[2017-04-20] MEDS: INSULIN ASPART SUPPLEMENTAL SCALE SQ SCH ×4 (07:00→21:00)
[2017-04-20] MEDS: LORazepam 0.5 MG TAB PO PRN (09:00)
[2017-04-21] MEDS: traZODone HCL 50 MG TAB PO PRN (00:29)
[2017-04-21 06:48] VITALS: BP 148/64; PULSE 103; RESP 18; TEMP 97.8; O2SAT 99
[2017-04-21] MEDS: INSULIN ASPART SUPPLEMENTAL SCALE SQ SCH ×4 (07:00→21:00)
[2017-04-21] MEDS: FINASTERIDE 5 MG TAB PO SCH (09:59)
[2017-04-21] MEDS: ASPIRIN 81 MG CHEW TAB PO SCH (09:59)
[2017-04-21] MEDS: metFORMIN HCL 500 MG TAB PO SCH (09:59)
[2017-04-21] MEDS: PANTOPRAZOLE SOD 40 MG DELAYED RELEASE TAB PO SCH (09:59)
[2017-04-21] MEDS: CLOPIDOGREL 75 MG TAB PO SCH (09:59)
[2017-04-21] MEDS: LOSARTAN 25 MG TAB PO SCH (09:59)
[2017-04-21 18:13] VITALS: BP 136/64; PULSE 79; RESP 18; TEMP 97.7; O2SAT 100
[2017-04-22] MEDS: INSULIN ASPART SUPPLEMENTAL SCALE SQ SCH ×4 (06:05→21:00)
[2017-04-22 06:38] VITALS: BP 134/66; PULSE 101; RESP 18; TEMP 97; O2SAT 96
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
--- NOTE | 2017-04-22 07:42 | HHI.PYPN ---
Subjective Remarks Patient seen today with floor staff, chart review, patient compliant medications. Patient continues confused disoriented demented, needing assistance with ADLs. And also with us meals and hygiene. At times she showing some mild irritability with staff intervention but is redirectable no significant behavioral problems. For now continue treatment Review of Systems Except as stated in HPI: all other systems reviewed are Neg Objective Alert: Yes [place]: Person (vaguely) Mood: Calm Affect: Other (slight decreased range of motion intensity) Memory Intact: Comment (very poor) Hallucinations: Other (denies) Delusions: No Delusion Type: Other (none noted) Suicidal: Ideation (denies though difficult to ascertain due to patient's cognitive deficit) Homicidal: Ideation (denies though difficult to ascertain due to patient's cognitive deficit) Insight/Judgment Very poor Vitals/IOs Vital Signs Date Time Temp Pulse Resp B/P (MAP) Pulse Ox O2 Delivery O2 Flow Rate FiO2 04/22/17 06:38 97.0 101 18 134/66 (88) 96 Assessment & Plan Problem List: (1) Dementia in other diseases classified elsewhere with behavioral disturbance ICD Codes: F02.81 - Dementia in other diseases classified elsewhere with behavioral disturbance Status: Acute (2) Alzheimer's dementia with behavioral disturbance ICD Codes: G30.8 - Other Alzheimer's disease; F02.81 - Dementia in other diseases classified elsewhere with behavioral disturbance Status: Acute Assessment & Plan Estimated LOS: days patient continues confused demented, compliant medications , no significant behavioral problems. Justification for Cont. Inpt. At this time patient will decompensate if placed in a lower level of care Discharge Planning To be determined Problem Qualifiers (1) Alzheimer's dementia with behavioral disturbance: Qualified Codes: G30.8 - Other Alzheimer's disease; F02.81 - Dementia in other diseases classified elsewhere with behavioral disturbance Darrian Vera MD Apr 22, 2017 07:42
[2017-04-22] MEDS: metFORMIN HCL 500 MG TAB PO SCH (09:35)
[2017-04-22] MEDS: PANTOPRAZOLE SOD 40 MG DELAYED RELEASE TAB PO SCH (09:36)
[2017-04-22] MEDS: ASPIRIN 81 MG CHEW TAB PO SCH (09:36)
[2017-04-22] MEDS: FINASTERIDE 5 MG TAB PO SCH (09:36)
[2017-04-22] MEDS: LOSARTAN 25 MG TAB PO SCH (09:36)
[2017-04-22] MEDS: CLOPIDOGREL 75 MG TAB PO SCH (09:36)
[2017-04-22] MEDS: LORazepam 2 MG/ML VIAL IM PRN ×2 (13:33→23:36)
[2017-04-22 21:19] VITALS: BP 134/71; PULSE 107; RESP 18; TEMP 97.2; O2SAT 96
[2017-04-22] MEDS: traZODone HCL 50 MG TAB PO PRN (21:46)
[2017-04-22] MEDS: LORazepam 0.5 MG TAB PO PRN (21:46)
[2017-04-23 06:00] VITALS: BP 115/58; PULSE 100; RESP 16; TEMP 98.8; O2SAT 95
[2017-04-23] MEDS: INSULIN ASPART SUPPLEMENTAL SCALE SQ SCH ×4 (06:20→21:00)
--- NOTE | 2017-04-23 06:59 | HHI.PYPN ---
Subjective Remarks Patient seen and examined in coverage for Dr. Auguste. Chart reviewed. Case d/w RN: Trazodone PRN and Ativan PO PRN ON per nurse. Restless and agitated. Tries to get up from chair. Difficult to redirect. Ativan IM with minimal benefit. On my examination this morning, mildly sedated but arousable. Denies pain. Disoriented and confused. No other side effects from medications. No other physical complaints. Review of Systems ROS Limitations: Poor Historian Except as stated in HPI: all other systems reviewed are Neg Objective Alert: Yes Flom: Person Mood: Calm (presently calm but agitated overnight) Affect: Flat Memory Intact: Comment (suspect impaired) Hallucinations: Other (none) Delusions: No Delusion Type: Other (none) Suicidal: Ideation (no SI voiced) Homicidal: Ideation (no HI voiced) Insight/Judgment Poor Remarks No motor abnormalities noted Labs Labs reviewed. Vitals/IOs Vital Signs Date Time Temp Pulse Resp B/P (MAP) Pulse Ox O2 Delivery O2 Flow Rate FiO2 04/23/17 06:00 98.8 100 16 115/58 (77) 95 Assessment & Plan Problem List: (1) Alzheimer's dementia with behavioral disturbance ICD Codes: G30.8 - Other Alzheimer's disease; F02.81 - Dementia in other diseases classified elsewhere with behavioral disturbance Status: Acute (2) Dementia in other diseases classified elsewhere with behavioral disturbance ICD Codes: F02.81 - Dementia in other diseases classified elsewhere with behavioral disturbance Status: Acute Assessment & Plan To consider adding scheduled medication for management of nocturnal agitation. Continue to monitor on the inpatient unit. Continue other medications and care as ordered. Justification for Cont. Inpt. Risk for decompensation Discharge Planning Per Dr. Auguste. Problem Qualifiers (1) Alzheimer's dementia with behavioral disturbance: Qualified Codes: G30.8 - Other Alzheimer's disease; F02.81 - Dementia in other diseases classified elsewhere with behavioral disturbance Enmanuel Stauffer MD Apr 23, 2017 06:59
[2017-04-23] MEDS: FINASTERIDE 5 MG TAB PO SCH (10:14)
[2017-04-23] MEDS: LOSARTAN 25 MG TAB PO SCH (10:15)
[2017-04-23] MEDS: PANTOPRAZOLE SOD 40 MG DELAYED RELEASE TAB PO SCH (10:15)
[2017-04-23] MEDS: CLOPIDOGREL 75 MG TAB PO SCH (10:15)
[2017-04-23] MEDS: metFORMIN HCL 500 MG TAB PO SCH (10:15)
[2017-04-23] MEDS: ASPIRIN 81 MG CHEW TAB PO SCH (10:16)
[2017-04-23] MEDS: traZODone HCL 50 MG TAB PO PRN (21:29)
[2017-04-23] MEDS: LORazepam 0.5 MG TAB PO PRN (21:30)
[2017-04-24] MEDS: LORazepam 2 MG/ML VIAL IM PRN (02:51)
[2017-04-24] MEDS: INSULIN ASPART SUPPLEMENTAL SCALE SQ SCH ×4 (06:01→21:00)
[2017-04-24] MEDS: FINASTERIDE 5 MG TAB PO SCH (09:19)
[2017-04-24] MEDS: LOSARTAN 25 MG TAB PO SCH (09:19)
[2017-04-24] MEDS: CLOPIDOGREL 75 MG TAB PO SCH (09:19)
[2017-04-24] MEDS: metFORMIN HCL 500 MG TAB PO SCH (09:20)
[2017-04-24] MEDS: ASPIRIN 81 MG CHEW TAB PO SCH (09:20)
[2017-04-24] MEDS: PANTOPRAZOLE SOD 40 MG DELAYED RELEASE TAB PO SCH (09:20)
[2017-04-24 16:54] VITALS: BP 134/71; PULSE 107; RESP 18; TEMP 97; O2SAT 96
[2017-04-24] MEDS ORDERED: LORazepam 1 MG TAB PO SCH (21:00)
[2017-04-25] MEDS: INSULIN ASPART SUPPLEMENTAL SCALE SQ SCH ×2 (05:34→11:19)
[2017-04-25 06:15] VITALS: BP 137/70; PULSE 103; RESP 18; TEMP 97.9; O2SAT 99
[2017-04-25] MEDS: CLOPIDOGREL 75 MG TAB PO SCH (10:26)
[2017-04-25] MEDS: PANTOPRAZOLE SOD 40 MG DELAYED RELEASE TAB PO SCH (10:26)
[2017-04-25] MEDS: LOSARTAN 25 MG TAB PO SCH (10:26)
[2017-04-25] MEDS: FINASTERIDE 5 MG TAB PO SCH (10:27)
[2017-04-25] MEDS: metFORMIN HCL 500 MG TAB PO SCH (10:27)
[2017-04-25] MEDS: ASPIRIN 81 MG CHEW TAB PO SCH (10:27)
--- NOTE | 2017-04-25 14:12 | HHI.PR ---
Subjective Remarks Patient is lying on a recliner chair without any apparent distress Pleasant following commands Confused Offering no complaint Review of systems a 10 point system unremarkable Objective Objective Results - Vital Signs Date Time Temp Pulse Resp B/P (MAP) Pulse Ox O2 Delivery O2 Flow Rate FiO2 04/25/17 06:15 97.9 103 18 137/70 (92) 99 04/24/17 16:54 97.0 107 18 134/71 (92) 96 I/O 04/24/17 04/24/17 04/24/17 04/25/17 04/25/17 04/25/17 07:00 15:00 23:00 07:00 15:00 23:00 Intake Total 180 ml 0 ml Balance 180 ml 0 ml Intake Oral 180 ml 0 ml # Voids 1 2 Physical Exam Physical Exam GENERAL: This is an elderly male who appears to be in no acute distress. HEAD: Normocephalic Facial features appear symmetric. OROPHARYNGEAL: Oropharynx clean without drooling NECK: Supple. No lymphadenopathy CARDIAC: Regular rhythm, regular rate, S1 and S2 are heard. Soft systolic murmur LUNGS: Clear to auscultation bilaterally. No SOB ABDOMEN: Soft, nontender, bowel sounds soft EXTREMITIES: no edema. NEUROLOGICAL: Patient mood and affect calm. Moving all his extremities SKIN:Warm and dry A/P Assessment and Plan History of coronary artery disease History of CABG, peripheral vascular disease, dysrhythmias which are stable now, hypertension stable Medications have been renewed, monitor his medical management Type 2 diabetes, takes no medications -Accu-Cheks before meals and at bedtime, sliding scale if needed. Stable Hypertension, BP stable -Grade clonidine 0.1 mg by mouth every 6 when necessary for systolic rhythm 170 and diastolic rhythm 90 Alzheimer's dementia with personality disorders, agitation ` Appreciate psyche input and psy medical management, patient currently denies any chest pain no shortness of breath, Labs reviewed Discussed with psychiatrist discharge planning for today as discussed with psychiatrist and nurse. Discussed with nursing staff Explained to patient Lazaro Sanchez MD Apr 25, 2017 14:12
[2017-04-25] MEDS ORDERED: ASPI81CH25 PO (14:18)
[2017-04-25] MEDS ORDERED: CLON.1 PO (14:18)
[2017-04-25] MEDS ORDERED: NOVOLOGSS SQ (14:18)
[2017-04-25] MEDS ORDERED: FINA5TAB2 PO (14:18)
[2017-04-25] MEDS ORDERED: METF500 PO (14:18)
[2017-04-25] MEDS ORDERED: COZA25TA PO (14:18)
[2017-04-25] MEDS ORDERED: PLAV75TA29 PO (14:18)
[2017-04-25] MEDS ORDERED: TRAZ50TA12 PO (15:18)
[2017-04-25] MEDS ORDERED: PANT40TA3 PO (15:18)
[2017-04-25] MEDS ORDERED: LORA-474 PO (15:18)
--- NOTE | 2017-04-26 07:35 | MD ---
cc: JUANITA LAMB M.D. ADMISSION DATE: 04/16/2017 DISCHARGE DATE: 04/25/2017 ADMISSION DIAGNOSIS: AXIS I: Dementia with behavioral disturbance. Depressive disorder, NOS. AXIS II: No diagnosis. AXIS III: Diabetes mellitus. Coronary artery disease. Status post coronary artery bypass grafting. Hypertension. Atrial fibrillation. Hyperlipidemia. Aortic stenosis. Peripheral vascular disease. Benign hypertrophy of the prostate. Carotid artery disease. Gastroesophageal reflux disease (GERD). Chronic kidney disease. AXIS IV: Severity of psychosocial stressors, moderate, i.e., multiple medical problems, cognitive decline. AXIS V: Current GAF score 30. DISCHARGE DIAGNOSIS: AXIS I: Dementia with behavioral disturbance. Depressive disorder, NOS. AXIS II: No diagnosis. AXIS III: Diabetes mellitus. Coronary artery disease. Status post coronary artery bypass grafting. Hypertension. Atrial fibrillation. Hyperlipidemia. Aortic stenosis. Peripheral vascular disease. Benign hypertrophy of the prostate. Carotid artery disease. Gastroesophageal reflux disease (GERD). Chronic kidney disease. AXIS IV: Severity of psychosocial stressors, moderate, i.e., multiple medical problems, cognitive decline. AXIS V: Current GAF score 35. BRIEF HISTORY: This 81-year-old white male was brought to the emergency room of this hospital under the [place] [facility] due to increasing aggressive behavior and cognitive decline. Please refer to my initial evaluation for details. LABORATORY DATA: CBC with differential essentially unremarkable. Comprehensive metabolic panel: BUN slightly elevated from the one initially on 04/18 at 17:24. Serum creatinine 1.2. Hemoglobin A1c normal. Liver enzymes normal. Vitamin D level is 32. TSH is normal. Urine drug screen positive for benzodiazepines Routine urinalysis unremarkable. Vitamin B12 level is normal. HOSPITAL COURSE: When initially evaluated, he was quite irritable, easily agitated and somewhat restless. He was started on Ativan and his restlessness and agitation subsided significantly. Initially consideration was given to a trial of Haldol and possibly Remeron to help him with insomnia and poor appetite. However, these were not initiated as his agitation had subsided and his sleep and appetite had started improving. He would at times get agitated at night and a routine dose of Ativan was added. Overall his agitation subsided significantly. I met his a couple of times and reviewed the patient's condition and discussed the treatment approach and discharge plans. She was very receptive and supportive. She seemed somewhat ambivalent about an assisted living facility placement and seemed to have some underlying guilt as well. However, she acknowledged that she was unable to take care of him at home and proceeded with placement at [facility]. The treatment team reviewed his condition and discharge plans again at length today and it was felt that he received optimum benefit out of this admission and could be discharged. He was followed medically by Dr. Sanchez. There is some issue as to who the medical i d sales on the case needed to be as he was in hospice but prior to admission his had dis-enrolled him from hospice. I reviewed the situation with her as well as with the hospital insurance reviewer. I was informed today that he is not on the [facility] Plans at this time and is on state Medicaid. As such, I reviewed the situation with Dr. Sanchez again today and he came in and re-evaluated the patient. He medically cleared him. So at this time, he is felt to have received optimum benefit out of this admission. He is denying any suicidal or homicidal ideations. He is not exhibiting any acute psychotic symptoms. He is being discharged to the assisted living facility called [facility] with the following recommendations: 1. Aspirin 81 milligrams p.o. daily #30. 2. Clonidine 0.1 milligrams p.o. q 6 hours PRN for systolic blood pressure greater than 170 and diastolic blood pressure greater than 90. 3. Finasteride 5 milligrams daily #30. 4. NovoLog injections, one unit subcutaneously a.c. and at bedtime sliding scale. 5. Ativan 0.5 milligrams p.o. at bedtime PRN for anxiety and insomnia, 14 day supply with one refill. 6. Cozaar 25 milligrams p.o. daily #30. 7. Metformin 500 milligrams p.o. daily #30. 8. Pantoprazole 40 milligrams p.o. daily #14. 9. Trazodone 50 milligrams p.o. at bedtime PRN for insomnia #14 one refill. He is to have outpatient medical follow up with his primary care physician and psychiatric follow up through [facility]. In addition, he is also recommended a home health nurse and physical therapy at the assisted living facility. MD JOVANNA Galdamez/DUNCAN /3:25 PM /7:27 AM
== END 2017-04-25 15:50 | DRG 57 ==
LOC: NEPD 22:37 → NEDA 04-16 11:59 → H250 04-16 16:22
PROVIDERS: ADMIT Psychiatry & Neurology Psychiatry; ATTEND Psychiatry & Neurology Psychiatry
DX: G30.9 Alzheimer's disease, unspecified (principal); F02.81 Dementia in other diseases classified elsewhere, unspecified severity, with behavioral disturbance; E11.22 Type 2 diabetes mellitus with diabetic chronic kidney disease; F32.9 Major depressive disorder, single episode, unspecified; I48.0 Paroxysmal atrial fibrillation; Z95.1 Presence of aortocoronary bypass graft; Z78.1 Physical restraint status; H91.93 Unspecified hearing loss, bilateral; I25.2 Old myocardial infarction; R63.4 Abnormal weight loss; I25.10 Atherosclerotic heart disease of native coronary artery without angina pectoris; I12.9 Hypertensive chronic kidney disease with stage 1 through stage 4 chronic kidney disease, or unspecified chronic kidney disease; N18.9 Chronic kidney disease, unspecified; K21.9 Gastro-esophageal reflux disease without esophagitis; E78.5 Hyperlipidemia, unspecified; I73.9 Peripheral vascular disease, unspecified; D63.8 Anemia in other chronic diseases classified elsewhere; E87.6 Hypokalemia; I35.0 Nonrheumatic aortic (valve) stenosis; N40.0 Benign prostatic hyperplasia without lower urinary tract symptoms; G47.00 Insomnia, unspecified; F41.9 Anxiety disorder, unspecified; Z87.891 Personal history of nicotine dependence
CPT/HCPCS: 80048; 80053; 80061; 80307; 81001; 82306; 82607; 82948; 83036; 84443; 85025; 93005; 96372; J1815; J2060; P9612

== ENCOUNTER 2017-04-27 14:51 | Inpatient (IN) | payer MEDICARE, OTHER ==
[~2017-04-27] VITALS: Ht 180.3 cm; Wt 82.0 kg
[~2017-04-27 14:51] MED LIST changes: +ASPI81CH25 PO; -ASPI81TA81 PO; -CALC500T35 PO; +CLON.1 PO; -CLOP75TA PO; +COZA25TA PO; -FURO1TAB62 PO; -LORA-392 PO; +LORA-474 PO; -LOSA25TA PO; -MAGN400T2 PO; +METF500 PO; -METF500T PO; +NOVOLOGSS SQ; +PLAV75TA29 PO; -POTA1TAB4 PO; +TRAZ50TA12 PO
[2017-04-27 15:05] VITALS: BP 114/70; PULSE 98; RESP 17; TEMP 97.8; O2SAT 98
--- NOTE | 2017-04-27 15:15 | PD ---
HPI Chief Complaint: medical evaluation Time Seen by Provider: 15:05 Travel History International Travel<30 days: No Contact w/Intl Traveler<30days: No Traveled to known affect area: No History of Present Illness HPI The patient is a 81-year-old male who presents to the emergency department via [facility] from a intermediate for medical evaluation. According to the nursing report the patient was sent to the emergency department for possible fracture of the left hand. Paperwork that was sent with the patient states he has a history of dementia with behavioral disturbance. EMR reveals that the patient was recently admitted to the hospital, psychiatric admission, for dementia with behavioral disturbances. The patient is nonverbal and is unable to provide any information. No further information was obtained from the patient. PFSH Past Medical History AAA: Yes Cancer: No Cardiovascular Problems: Yes Chemotherapy: No Cerebrovascular Accident: No Dementia: Yes Diabetes: Yes Diminished Hearing: Yes (BILATERAL ) Endocrine: Yes (DIABETES) Gastrointestinal Disorders: No Genitourinary: No Headaches: No Hypertension: Yes Immune Disorder: No Musculoskeletal: No Neurologic: No Psychiatric: Yes (Dementia ) Reproductive: No Respiratory: Yes Immunizations Current: Yes Myocardial Infarction: Yes Seizures: No Past Surgical History Abdominal Surgery: Yes (CECUM SURGERY) Cardiac Surgery: Yes (CABG X 4) Pacemaker: No Tonsillectomy: Yes Social History Alcohol Use: No (QUIT 10 YEARS AGO) Tobacco Use: No (QUIT 40 YEARS AGO) Substance Use: No Allergies-Medications (Allergen,Severity, Reaction): Coded Allergies: omeprazole (Verified Allergy, Intermediate, hives, 04/27/17) alprazolam (Verified Adverse Reaction, Intermediate, confusion, 04/27/17) epinephrine (Verified Adverse Reaction, Intermediate, SEVERE SHAKING, ) scopolamine (Verified Adverse Reaction, Intermediate, NAUSEA/VOMITING, ) Reported Meds & Prescriptions Reported Meds & Active Scripts Active Pantoprazole (Pantoprazole Sodium) 40 Mg Tab 40 Mg PO DAILY 14 Days Ativan (Lorazepam) 1 Mg Tab 0.5 Mg PO HS 14 Days Trazodone (Trazodone HCl) 50 Mg Tab 50 Mg PO HS PRN 14 Days Finasteride 5 Mg Tab 5 Mg PO DAILY Do not crush. Novolog Inj (Insulin Aspart) 100 Unit/Ml Inj 1 Unit SQ ACHS SLIDING SCALE For sugar as following 150-199, one unit 200-249, 3 units 250 09/14/98, 5 units 300-349, 7 units Greater than 349 please inform M.D. Glucophage (Metformin HCl) 500 Mg Tab 500 Mg PO DAILY Aspirin Low Strength (Aspirin) 81 Mg Chew 81 Mg PO DAILY Cozaar (Losartan Potassium) 25 Mg Tab 25 Mg PO DAILY Catapres (Clonidine) 0.1 Mg Tab 0.1 Mg PO Q6H PRN For when necessary high blood pressure for systolic more than 165 and diastolic blood pressure more than 100 Plavix (Clopidogrel Bisulfate) 75 Mg Tab 75 Mg PO DAILY Reported Ativan (Lorazepam) 1 Mg Tab 1 Mg PO Q6H PRN Review of Systems ROS Limitations: Clinical Condition, Poor Historian Except as stated in HPI: all other systems reviewed are Neg Musculoskeletal: Positive: Edema Skin: Positive Other (bruising noted over the arms bilaterally) Neurologic: Positive: Change in Mentation Physical Exam Narrative GENERAL: Eyes closed, withdrawals and responsive pain, nonverbal 81-year-old male. SKIN: Focused skin assessment warm/dry. Ecchymosis and thin skin noted of the upper extremities bilaterally. HEAD: Atraumatic. Normocephalic. EYES: Pupils equal and round. Upon opening the eyelids, the pupils are 2 mm bilateral and reactive. Mild drainage from both eyes. ENT: No nasal bleeding or discharge. Dry mucous membranes. NECK: Trachea midline. No JVD. CARDIOVASCULAR: Regular rate and rhythm. No murmur appreciated. RESPIRATORY: No accessory muscle use. Clear to auscultation. Breath sounds equal bilaterally. GASTROINTESTINAL: Abdomen soft, non-tender, nondistended. No rebound tenderness. MUSCULOSKELETAL: Patient has ecchymosis noted of the upper extremity is bilaterally. The patient has an obvious dislocation of the PIP on the third digit left hand. Positive distal pulses. Mild contractures left lower extremity with flexion of the hip and knee, full range of motion of the right lower extremity. Back: No obvious step-off over the thoracic or lumbar vertebrae. NEUROLOGICAL: Nonverbal, opens eyes to pain, withdrawals to pain, but does not follow commands. PSYCHIATRIC: Unable to assess. Data Data Last Documented VS Vital Signs Date Time Temp Pulse Resp B/P (MAP) Pulse Ox O2 Delivery O2 Flow Rate FiO2 04/27/17 17:29 97.9 98 17 109/77 (88) 98 Room Air Orders Orders Hand, Limited (2vws) (04/27/17 ) Urinalysis - C+S If Indicated (04/27/17 15:05) Complete Blood Count With Diff (04/27/17 15:05) Comprehensive Metabolic Panel (04/27/17 15:05) Cath For Specimen (04/27/17 15:05) Splinting (04/27/17 ) Fiberglass Splint Forearm Adul (04/27/17 ) Fiberglass Splint Forearm Adul (04/27/17 ) Sodium Chlor 0.9% 1000 Ml Inj (Ns 1000 M (04/27/17 17:15) Admit Order (Ed Use Only) (04/27/17 17:34) Labs Laboratory Tests Test 04/27/17 15:00 04/27/17 15:21 White Blood Count 10.2 TH/MM3 Red Blood Count 4.89 MIL/MM3 Hemoglobin 14.2 GM/DL Hematocrit 43.7 % Mean Corpuscular Volume 89.5 FL Mean Corpuscular Hemoglobin 29.1 PG Mean Corpuscular Hemoglobin Concent 32.5 % Red Cell Distribution Width 14.4 % Platelet Count 195 TH/MM3 Mean Platelet Volume 9.1 FL Neutrophils (%) (Auto) 80.8 % Lymphocytes (%) (Auto) 9.0 % Monocytes (%) (Auto) 9.7 % Eosinophils (%) (Auto) 0.2 % Basophils (%) (Auto) 0.3 % Neutrophils # (Auto) 8.3 TH/MM3 Lymphocytes # (Auto) 0.9 TH/MM3 Monocytes # (Auto) 1.0 TH/MM3 Eosinophils # (Auto) 0.0 TH/MM3 Basophils # (Auto) 0.0 TH/MM3 CBC Comment DIFF FINAL Differential Comment Blood Urea Nitrogen 90 MG/DL Creatinine 5.11 MG/DL Random Glucose 132 MG/DL Total Protein 7.3 GM/DL Albumin 3.6 GM/DL Calcium Level 9.1 MG/DL Alkaline Phosphatase 68 U/L Aspartate Amino Transf (AST/SGOT) 34 U/L Alanine Aminotransferase (ALT/SGPT) 34 U/L Total Bilirubin 0.7 MG/DL Sodium Level 161 MEQ/L Potassium Level 4.0 MEQ/L Chloride Level 125 MEQ/L Carbon Dioxide Level 25.5 MEQ/L Anion Gap 11 MEQ/L Estimat Glomerular Filtration Rate 11 ML/MIN Urine Color YELLOW Urine Turbidity CLEAR Urine pH 5.0 Urine Specific Colp 1.024 Urine Protein TRACE mg/dL Urine Glucose (UA) NEG mg/dL Urine Ketones TRACE mg/dL Urine Occult Blood NEG Urine Nitrite NEG Urine Bilirubin SMALL Urine Urobilinogen 2.0 MG/DL Urine Leukocyte Esterase SMALL Urine WBC 2 /hpf Microscopic Urinalysis Comment CULT NOT INDICATED MDM Medical Decision Making Medical Screen Exam Complete: Yes Emergency Medical Condition: Yes Medical Record Reviewed: Yes Interpretation(s) Laboratory Tests Test 04/27/17 15:00 04/27/17 15:21 White Blood Count 10.2 TH/MM3 Red Blood Count 4.89 MIL/MM3 Hemoglobin 14.2 GM/DL Hematocrit 43.7 % Mean Corpuscular Volume 89.5 FL Mean Corpuscular Hemoglobin 29.1 PG Mean Corpuscular Hemoglobin Concent 32.5 % Red Cell Distribution Width 14.4 % Platelet Count 195 TH/MM3 Mean Platelet Volume 9.1 FL Neutrophils (%) (Auto) 80.8 % Lymphocytes (%) (Auto) 9.0 % Monocytes (%) (Auto) 9.7 % Eosinophils (%) (Auto) 0.2 % Basophils (%) (Auto) 0.3 % Neutrophils # (Auto) 8.3 TH/MM3 Lymphocytes # (Auto) 0.9 TH/MM3 Monocytes # (Auto) 1.0 TH/MM3 Eosinophils # (Auto) 0.0 TH/MM3 Basophils # (Auto) 0.0 TH/MM3 CBC Comment DIFF FINAL Differential Comment Blood Urea Nitrogen 90 MG/DL Creatinine 5.11 MG/DL Random Glucose 132 MG/DL Total Protein 7.3 GM/DL Albumin 3.6 GM/DL Calcium Level 9.1 MG/DL Alkaline Phosphatase 68 U/L Aspartate Amino Transf (AST/SGOT) 34 U/L Alanine Aminotransferase (ALT/SGPT) 34 U/L Total Bilirubin 0.7 MG/DL Sodium Level 161 MEQ/L Potassium Level 4.0 MEQ/L Chloride Level 125 MEQ/L Carbon Dioxide Level 25.5 MEQ/L Anion Gap 11 MEQ/L Estimat Glomerular Filtration Rate 11 ML/MIN Urine Color YELLOW Urine Turbidity CLEAR Urine pH 5.0 Urine Specific Colp 1.024 Urine Protein TRACE mg/dL Urine Glucose (UA) NEG mg/dL Urine Ketones TRACE mg/dL Urine Occult Blood NEG Urine Nitrite NEG Urine Bilirubin SMALL Urine Urobilinogen 2.0 MG/DL Urine Leukocyte Esterase SMALL Urine WBC 2 /hpf Microscopic Urinalysis Comment CULT NOT INDICATED Differential Diagnosis Differential diagnosis includes dementia, delirium, UTI, hyponatremia, fracture , dislocation, contusion, hematoma, dehydration, acute renal failure, hypernatremia. Narrative Course IV was established, labs are drawn and sent, and the patient was placed on cardiac telemetry monitoring and continuous pulse oximetry monitoring. Catheter UA was sent to lab. The patient had an obvious dislocation of the third digit left hand, therefore, the finger was reduced and post reduction x- ray was obtained to rule out underlying fracture. The patient was then placed in a splint. Nursing staff was asked to call the intermediate to see if there was any further concerns, as the patient is nonverbal and unable to provide any information. X-ray of the left hand does reveal a fracture of the fourth metacarpal midshaft. No obvious fracture of the third digit which was dislocated and reduced prior to x-ray. The patient was placed in a ulnar gutter splint. The patient's sodium is 161, creatinine is 5.11, last creatinine was performed on April 18 was 1.21. The patient has acute renal failure with hypernatremia secondary to dehydration. Therefore, the patient will be admitted to the medical service for IV fluids. The patient may benefit from palliative care consultation as he appears to have end-stage dementia. We called the [facility] call center, however, they state the patient cannot be [facility] until May 13, they state that [facility] with a last was to see the patient 2 days ago. Therefore, a call was placed in [facility] hospitalist. Physician Communication Physician Communication The patient has [facility], however, call center states the patient cannot be admitted to [facility] until after May 13. The patient was seen by the [facility] on his last admission, last that was by Dr. Sanchez on April 25. Therefore, a call was placed [facility]. Diagnosis Primary Impression: Acute renal failure Qualified Codes: N17.9 - Acute kidney failure, unspecified Additional Impressions: Dehydration Hypernatremia Closed traumatic PIP dislocation Qualified Codes: S63.289A - Dislocation of proximal interphalangeal joint of unspecified finger, initial encounter Fracture of fourth metacarpal bone of left hand Qualified Codes: S62.325A - Displaced fracture of shaft of fourth metacarpal bone, left hand, initial encounter for closed fracture Admitting Information Admitting Physician Requests: Admit Condition: Stable Richy Starks MD Apr 27, 2017 15:15
[2017-04-27 15:55] LABS: AUTOMATED NEUTROPHIL # 8.3 TH/MM3 (1.8-7.7); BASOPHIL % 0.3 % (0.0-2.0); EOSINOPHIL % 0.2 % (0.0-4.0); HEMATOCRIT 43.7 % (39.0-51.0); HEMO FLAGS DIFF FINAL; LYMPHOCYTE # 0.9 TH/MM3 (1.0-4.8); MEAN CELL VOLUME 89.5 FL (80.0-100.0); MEAN CORPUSCULAR HEMOGLOBIN 29.1 PG (27.0-34.0); MEAN CORPUSCULAR HGB CONC 32.5 % (32.0-36.0); MONO % 9.7 % (0.0-8.0); NEUT % 80.8 % (16.0-70.0); PLATELET COUNT 195 TH/MM3 (150-450); RED BLOOD COUNT 4.89 MIL/MM3 (4.50-5.90); RED CELL DISTRIBUTION WIDTH 14.4 % (11.6-17.2); WHITE BLOOD COUNT 10.2 TH/MM3 (4.0-11.0)
--- NOTE | 2017-04-27 15:57 | RADRPT ---
EXAM DATE/TIME: 04/27/2017 15:23 [facility] COMPARISON: No previous studies available for comparison. INDICATIONS : Left hand pain, post reduction 3rd digit. MEDICAL HISTORY : Dementia SURGICAL HISTORY : None. ENCOUNTER: Initial ACUITY: 1 day PAIN SCORE: Non-responsive. LOCATION: Left hand FINDINGS: Two view examination of the left hand demonstrates no soft tissue swelling, dislocation, or fracture. The joint spaces are maintained. Bony mineralization is normal. CONCLUSION: Anatomic alignment without significant fracture. Balaji Sinclair MD FACR on April 27, 2017 at 15:56 Board Certified Radiologist. This report was verified electronically.
[2017-04-27 16:00] LABS: BLOOD, URINE NEG (NEG); GLUCOSE,URINE NEG (NEG); KETONE, URINE TRACE mg/dL (NEG); NITRITE,URINE NEG (NEG); URINE COLOR YELLOW (YELLW/STRAW)
[2017-04-27 16:13] LABS: COMMENT (UR) CULT NOT INDICATED; CULTURE IF INDICATED CULT NOT INDICATED
[2017-04-27 16:48] LABS: ALKALINE PHOSPHATASE 68 U/L (45-117); ALT (GPT) 34 U/L (12-78); ANION GAP 11 MEQ/L (5-15); AST (GOT) 34 U/L (15-37); BICARBONATE 25.5 MEQ/L (21.0-32.0); BLOOD UREA NITROGEN 90 MG/DL (7-18); CHLORIDE 125 MEQ/L (98-107); GLOMERULAR FILTRATION RATE 11 ML/MIN (>89); TOTAL BILIRUBIN ADULT 0.7 MG/DL (0.2-1.0)
[2017-04-27 16:58] LABS: SODIUM (NA) 161 MEQ/L (136-145)
[2017-04-27] MEDS ORDERED: SODIUM CHLOR 0.9% 1000 ML INJ 1,000 ML IV ONE (17:15)
[2017-04-27 17:29] VITALS: BP 109/77; PULSE 98; RESP 17; TEMP 97.9; O2SAT 98
[2017-04-27] MEDS ORDERED: SODIUM CHLOR 0.9% 1000 ML INJ 1,000 ML IV SCH (17:34)
--- NOTE | 2017-04-27 17:40 | HHI.HP ---
[facility] Primary Care Physician Kyle Juarez MD Admission Diagnosis acute renal failure, hypernatremia, dehydration, dementia Diagnoses: Chief Complaint: agitation, dehydrated Travel History International Travel<30 Days: No Contact w/Intl Traveler <30 Da: No Traveled to Known Affected Are: No History of Present Illness Mr. Brown is an 81 y/o WM with hx of CAD/NSTEMI s/p CABG, HTN, paroxysmal atrial fibrillation, hyperlipidemia, mild based on echo in 2016, dementia and PVD with left 5th metatarsal nonhealing ulcer. Pt was brought to the ED from a local assisted living facility for possible fracture of the left hand. Apparently patient became very agitated and may have punched a wall. Patient was recently admitted from April 16 to the for agitation that required inpatient psychiatric hospitalization. Patient was discharge back to assisted living facility. According to the , prior to that admission he had been under hospice services which she had rescinded when he became agitated. She was expecting the hospice organization to contact her but they never did. who is at bedside indicates that over the last couple of weeks he has deteriorated and he's not talking very much and has become more agitated. He's not drinking and eating very much. Patient was evaluated in emergency room, he was noted with a dislocated third digit of the left hand. The finger was reduced and postreduction x-ray was obtained. Left hand was placed on the splint. Patient is nonverbal and unable to provide any details. He is somewhat agitated and attempting to remove splint. X-ray of the left hand does reveal fracture of the fourth metacarpal midshaft. There is no obvious fracture of the third digit which was dislocated and reduce prior to x-ray. Laboratory workup was completed, patient was noted with hypernatremia, sodium 161. Creatinine is 5.11. This is a new finding. Patient is severely dehydrated. Patient is evaluated in the presence of his . Goals of care and CODE STATUS have been discussed with the patient's in detail, she indicates that she has seen the decline. During prior admission in April 16 patient was more verbal however at this time he is no longer following commands and doesn't eat. She agrees with DNR status. She is interested in discussing hospice services and and would patient to go to the [facility] in [place] if a bed is available. She is requesting [facility] hospice. Patient will be admitted and given IV fluids and if accepted he will be going with hospice services tomorrow. is agreeable with plan and agrees to admission. Review of Systems ROS Limitations: Clinical Condition, Altered Mental Status, Poor Historian Past Family Social History Past Medical History CAD/NSTEMI s/p CABG HTN Atrial fibrillation, paroxysmal Hyperlipidemia , reported as mild on 2D echo in10/2015 PVD- left 5th metatarsal ulcer, non-healing BPH Carotid artery disease Dementia Diabetes mellitus GERD CKD 2D echo (10/2016):55-60% admitted for dizziness, bradycardia 10/2016. Had STT was ok. BB adjusted. Past Surgical History CABG x 4 on 11/25/13 Exploratory lap and cecostomy tube in 11/[address] Alva Tonsillectomy with adenoidectomy Elective circumcision Reported Medications Reported Meds & Active Scripts Active Pantoprazole (Pantoprazole Sodium) 40 Mg Tab 40 Mg PO DAILY 14 Days Ativan (Lorazepam) 1 Mg Tab 0.5 Mg PO HS 14 Days Trazodone (Trazodone HCl) 50 Mg Tab 50 Mg PO HS PRN 14 Days Finasteride 5 Mg Tab 5 Mg PO DAILY Do not crush. Novolog Inj (Insulin Aspart) 100 Unit/Ml Inj 1 Unit SQ ACHS SLIDING SCALE For sugar as following 150-199, one unit 200-249, 3 units 250 09/14/98, 5 units 300-349, 7 units Greater than 349 please inform M.D. Glucophage (Metformin HCl) 500 Mg Tab 500 Mg PO DAILY Aspirin Low Strength (Aspirin) 81 Mg Chew 81 Mg PO DAILY Cozaar (Losartan Potassium) 25 Mg Tab 25 Mg PO DAILY Catapres (Clonidine) 0.1 Mg Tab 0.1 Mg PO Q6H PRN For when necessary high blood pressure for systolic more than 165 and diastolic blood pressure more than 100 Plavix (Clopidogrel Bisulfate) 75 Mg Tab 75 Mg PO DAILY Reported Ativan (Lorazepam) 1 Mg Tab 1 Mg PO Q6H PRN Allergies: Coded Allergies: omeprazole (Verified Allergy, Intermediate, hives, 04/27/17) alprazolam (Verified Adverse Reaction, Intermediate, confusion, 04/27/17) epinephrine (Verified Adverse Reaction, Intermediate, SEVERE SHAKING, 9/ 15/17) scopolamine (Verified Adverse Reaction, Intermediate, NAUSEA/VOMITING, ) Active Ordered Medications Inpatient Medications Sodium Chloride 1,000 ml @ 999 mls/hr BOLUS ONCE IV Last administered on 04/27t 17:21; Start 04/27/17 at 17:15; Stop 04/27/17 at 18:15 Family History unable to obtain Social History Hx of tobacco use, smoked daily for about 20 years, quit around age 38 Pt is currently staying at [facility]. Was recently under hospice services Physical Exam Vital Signs Vital Signs Date Time Temp Pulse Resp B/P (MAP) Pulse Ox O2 Delivery O2 Flow Rate FiO2 04/27/17 17:29 97.9 98 17 109/77 (88) 98 Room Air 04/27/17 15:25 88 17 98 Room Air 04/27/17 15:05 97.8 98 17 114/70 (85) 98 Physical Exam GENERAL: This is a well-nourished, well-developed patient, in no apparent distress. SKIN: Skin is cool and dry. Multiple bruises are noted to upper extremities. HEAD: Atraumatic. Normocephalic. No temporal or scalp tenderness. EYES: Right eye erythematous. No scleral icterus. ENT: Nose without bleeding, purulent drainage or septal hematoma. Throat without erythema, tonsillar hypertrophy or exudate. Uvula midline. Airway patent. NECK: Trachea midline. No JVD or lymphadenopathy. Supple, nontender, no meningeal signs. CARDIOVASCULAR: S1 and S2, irregular. Soft murmur. RESPIRATORY: Essentially clear, poor inspiratory effort. GASTROINTESTINAL: Abdomen soft, non-tender, nondistended. No hepato-splenomegaly , or palpable masses. No guarding. MUSCULOSKELETAL: Left hand is in splint. Patient attempting to remove it. Intact sensation. No other joint abnormalities. NEUROLOGICAL: Patient is awake, nonverbal. Demented, agitated, attempting to remove splint. Laboratory Laboratory Tests Test 04/27/17 15:00 04/27/17 15:21 White Blood Count 10.2 Red Blood Count 4.89 Hemoglobin 14.2 Hematocrit 43.7 Mean Corpuscular Volume 89.5 Mean Corpuscular Hemoglobin 29.1 Mean Corpuscular Hemoglobin Concent 32.5 Red Cell Distribution Width 14.4 Platelet Count 195 Mean Platelet Volume 9.1 Neutrophils (%) (Auto) 80.8 Lymphocytes (%) (Auto) 9.0 Monocytes (%) (Auto) 9.7 Eosinophils (%) (Auto) 0.2 Basophils (%) (Auto) 0.3 Neutrophils # (Auto) 8.3 Lymphocytes # (Auto) 0.9 Monocytes # (Auto) 1.0 Eosinophils # (Auto) 0.0 Basophils # (Auto) 0.0 CBC Comment DIFF FINAL Differential Comment Blood Urea Nitrogen 90 Creatinine 5.11 Random Glucose 132 Total Protein 7.3 Albumin 3.6 Calcium Level 9.1 Alkaline Phosphatase 68 Aspartate Amino Transf (AST/SGOT) 34 Alanine Aminotransferase (ALT/SGPT) 34 Total Bilirubin 0.7 Sodium Level 161 Potassium Level 4.0 Chloride Level 125 Carbon Dioxide Level 25.5 Anion Gap 11 Estimat Glomerular Filtration Rate 11 Urine Color YELLOW Urine Turbidity CLEAR Urine pH 5.0 Urine Specific [place] 1.024 Urine Protein TRACE Urine Glucose (UA) NEG Urine Ketones TRACE Urine Occult Blood NEG Urine Nitrite NEG Urine Bilirubin SMALL Urine Urobilinogen 2.0 Urine Leukocyte Esterase SMALL Urine WBC 2 Microscopic Urinalysis Comment CULT NOT INDICATED Result Diagram: 04/27/17 1500 04/27/17 1500 Imaging Last Impressions Hand X-Ray 04/27/17 0000 Signed Impressions: Service Date/Time: Thursday, April 27, 2017 15:23 - CONCLUSION: Anatomic alignment without significant fracture. Balaji Sinclair MD FACR Caprini VTE Risk Assessment Caprini VTE Risk Assessment: Mod/High Risk (score >= 2) Caprini Risk Assessment Model Point Value = 1 Point Value = 2 Point Value = 3 Point Value = 5 Age 41-60 Minor surgery BMI > 25 kg/m2 Swollen legs Varicose veins or History of unexplained or recurrent spontaneous Oral contraceptives or hormone replacement Sepsis (< 1 month) Serious lung disease, including pneumonia (< 1 month) Abnormal pulmonary function Acute myocardial infarction Congestive heart failure (< 1 month) History of inflammatory bowel disease Medical patient at bed rest Age 61-74 Arthroscopic surgery Major open surgery (> 45 min) Laparoscopic surgery (> 45 min) Malignancy Confined to bed (> 72 hours) Immobilizing plaster cast Central venous access Age >= 75 History of VTE Family history of VTE Factor V Leiden Prothrombin [id number] Lupus anticoagulant Anticardiolipin antibodies Elevated serum homocysteine Heparin-induced thrombocytopenia Other congenital or acquired thrombophilia Stroke (< 1 month) Elective arthroplasty Hip, pelvis, or leg fracture Acute spinal cord injury (< 1 month) Prophylaxis Regimen Total Risk Factor Score Risk Level Prophylaxis Regimen 0-1 Low Early ambulation 2 Moderate Order ONE of the following: *Sequential Compression Device (SCD) *Heparin 5000 units SQ BID 3-4 Higher Order ONE of the following medications: *Heparin 5000 units SQ TID *Enoxaparin/Lovenox 40 mg SQ daily (WT < 150 kg, CrCl > 30 mL/min) *Enoxaparin/Lovenox 30 mg SQ daily (WT < 150 kg, CrCl > 10-29 mL/min) *Enoxaparin/Lovenox 30 mg SQ BID (WT < 150 kg, CrCl > 30 mL/min) AND/OR *Sequential Compression Device (SCD) 5 or more Highest Order ONE of the following medications: *Heparin 5000 units SQ TID (Preferred with Epidurals) *Enoxaparin/Lovenox 40 mg SQ daily (WT < 150 kg, CrCl > 30 mL/min) *Enoxaparin/Lovenox 30 mg SQ daily (WT < 150 kg, CrCl > 10-29 mL/min) *Enoxaparin/Lovenox 30 mg SQ BID (WT < 150 kg, CrCl > 30 mL/min) AND *Sequential Compression Device (SCD) Assessment and Plan Problem List: (1) Acute renal failure ICD Codes: N17.9 - Acute kidney failure, unspecified Status: Acute (2) Closed traumatic PIP dislocation ICD Codes: S63.289A - Dislocation of proximal interphalangeal joint of unspecified finger, initial encounter Status: Acute (3) Fracture of fourth metacarpal bone of left hand ICD Codes: S62.305A - Unspecified fracture of fourth metacarpal bone, left hand , initial encounter for closed fracture Status: Acute (4) Hypernatremia ICD Codes: E87.0 - Hyperosmolality and hypernatremia Status: Acute (5) Dehydration ICD Codes: E86.0 - Dehydration Status: Acute (6) Dementia in other diseases classified elsewhere with behavioral disturbance ICD Codes: F02.81 - Dementia in other diseases classified elsewhere with behavioral disturbance Status: Acute (7) Atrial fibrillation ICD Codes: I48.91 - Atrial fibrillation Status: Chronic (8) Hyperlipidemia ICD Codes: E78.5 - Hyperlipidemia, unspecified Status: Chronic (9) PVD (peripheral vascular disease) ICD Codes: I73.9 - Peripheral vascular disease, unspecified Status: Chronic (10) HTN (hypertension) ICD Codes: I10 - Essential (primary) hypertension Status: Chronic (11) CAD (coronary artery disease) ICD Codes: I25.10 - Atherosclerotic heart disease of [place] coronary artery without angina pectoris Status: Chronic (12) DM type 2 (diabetes mellitus, type 2) ICD Codes: E11.9 - DM type 2 (diabetes mellitus, type 2) Status: Chronic Assessment and Plan 81-year-old elderly male with history of dementia, PVD, hypertension. Presented for evaluation of left hand injury. Pt. apparently punched a wall, found with dislocation of the proximal interphalangeal joint left hand as well as displaced fracture of shaft of fourth metacarpal bone left hand. He is status post reduction. -Continue with splint -Continue neurovascular check Acute kidney injury with hypernatremia and dehydration -Was given 1 L of normal saline in the ER. Change IV fluids to D5 water at 42 an hour -BMP in the morning Dementia with agitation -Ativan 1 mg IV push every 6 when necessary for agitation History of coronary artery disease- Hypertension Prior bradycardia PVD-possible smell vessel disease small vessel PVD with non healing 5th metatarsal ulceration, was on Plavix Atrial fibrillation -Hold medications at this time, patient is at risk for aspiration. Type 2 diabetes, on metformin. Will hold due to acute kidney injury -Continue to monitor SCDs for DVT prophylaxis Hold by mouth medications at this time, patient at risk for aspiration Overall poor prognosis, patient appears to have declined since most recent admission. End-of-life care issues have been discussed with the patient's and she is requesting DO NOT RESUSCITATE status She is agreeable with transitioning to comfort care and hospice services Consult hospice in case management We'll hydrate overnight and repeat BMP in the morning. Patient is accepted at the hospice care center, he will likely be discharged tomorrow Plan of care has been discussed with the patient's , attending and RN. Further management of the patient will be dependent on the hospital course This patient was seen by myself and Dr. Sanchez, this H&P is written on his behalf Physician Certification 2 Midnight Certification Type: Admission for Inpatient Services Order for Inpatient Services The services are ordered in accordance with Medicare regulations or non- Medicare payer requirements, as applicable. In the case of services not specified as inpatient-only, they are appropriately provided as inpatient services in accordance with the 2-midnight benchmark. Estimated LOS (days): 2 2 days is the estimated time the patient will need to remain in the hospital, assuming treatment plan goals are met and no additional complications. Post-Hospital Plan: [facility] Problem Qualifiers (1) Acute renal failure: Qualified Codes: N17.9 - Acute kidney failure, unspecified (2) Closed traumatic PIP dislocation: Qualified Codes: S63.289A - Dislocation of proximal interphalangeal joint of unspecified finger, initial encounter (3) Fracture of fourth metacarpal bone of left hand: Qualified Codes: S62.325A - Displaced fracture of shaft of fourth metacarpal bone, left hand, initial encounter for closed fracture (4) Atrial fibrillation: Qualified Codes: I48.91 - Unspecified atrial fibrillation (5) Hyperlipidemia: Qualified Codes: E78.5 - Hyperlipidemia, unspecified (6) HTN (hypertension): Qualified Codes: I10 - Essential (primary) hypertension (7) CAD (coronary artery disease): Qualified Codes: I25.10 - Atherosclerotic heart disease of [place] coronary artery without angina pectoris (8) DM type 2 (diabetes mellitus, type 2): Qualified Codes: E11.8 - Type 2 diabetes mellitus with unspecified complications Beverly Garcia Apr 27, 2017 17:40
[2017-04-27] MEDS ORDERED: ONDANSETRON HCL 4 MG/2 ML VIAL IVP PRN (17:45)
[2017-04-27] MEDS ORDERED: LACTULOSE SYRUP 20 GM/30 ML CUP PO PRN (17:45)
[2017-04-27] MEDS ORDERED: SENNOSIDES 8.6 MG TAB PO PRN (17:45)
[2017-04-27] MEDS ORDERED: BISACODYL 10 MG SUPP RECTAL PRN (17:45)
[2017-04-27] MEDS ORDERED: SODIUM CHLORIDE 0.9% FLUSH 10 ML FLUSH IV FLUSH PRN (17:45)
[2017-04-27] MEDS ORDERED: ACETAMINOPHEN 325 MG TAB PO PRN ×2 (17:45)
[2017-04-27] MEDS ORDERED: ACETAMINOPHEN/HYDROcodone 325 MG/7.5 MG TAB PO PRN (17:45)
[2017-04-27] MEDS ORDERED: NALOXONE HCL 0.4 MG/ML AMP IV PUSH PRN (17:45)
[2017-04-27] MEDS ORDERED: MAGNESIUM HYDROXIDE SUSP 30 ML CUP PO PRN (17:45)
[2017-04-27] MEDS ORDERED: LORazepam 2 MG/ML VIAL IV PUSH PRN (18:00)
[2017-04-27] MEDS: HEPARIN SODIUM - SQ 10,000 UNITS/ML VIAL SQ SCH (18:10)
[2017-04-27 19:05] VITALS: BP 109/66; PULSE 96; RESP 18; O2SAT 98
[2017-04-27 21:00] VITALS: BP 110/58; PULSE 98; RESP 18; O2SAT 100
[2017-04-27] MEDS: DOCUSATE SODIUM 50 MG/SENNA 8.6 MG TAB PO SCH ×2 (21:00→21:06)
[2017-04-27] MEDS: SODIUM CHLORIDE 0.9% FLUSH 10 ML FLUSH IV FLUSH SCH (21:07)
[2017-04-27] MEDS: DEXTROSE 5% IN WATE 1000ML INJ 1,000 ML IV SCH (21:07)
[2017-04-28] VITALS: BP 106/53; PULSE 88; RESP 18; TEMP 97.3; O2SAT 94
[2017-04-28 04:53] LABS: BASOPHIL % 0.3 % (0.0-2.0); EOSINOPHIL % 0.4 % (0.0-4.0); HEMATOCRIT 39.2 % (39.0-51.0); HEMO FLAGS DIFF FINAL; LYMPH % 12.4 % (9.0-44.0); LYMPHOCYTE # 1.1 TH/MM3 (1.0-4.8); MEAN CELL VOLUME 88.8 FL (80.0-100.0); MEAN CORPUSCULAR HEMOGLOBIN 29.5 PG (27.0-34.0); MEAN CORPUSCULAR HGB CONC 33.3 % (32.0-36.0); MONO % 8.9 % (0.0-8.0); PLATELET COUNT 163 TH/MM3 (150-450); RED BLOOD COUNT 4.41 MIL/MM3 (4.50-5.90); RED CELL DISTRIBUTION WIDTH 14.2 % (11.6-17.2)
[2017-04-28 05:14] LABS: BICARBONATE 22.9 MEQ/L (21.0-32.0); POTASSIUM 3.7 MEQ/L (3.5-5.1)
[2017-04-28] MEDS: HEPARIN SODIUM - SQ 10,000 UNITS/ML VIAL SQ SCH ×2 (06:00→18:00)
[2017-04-28 08:00] VITALS: BP 105/55; PULSE 78; RESP 15; TEMP 98.4; O2SAT 93
[2017-04-28] MEDS: DOCUSATE SODIUM 50 MG/SENNA 8.6 MG TAB PO SCH (09:00)
[2017-04-28] MEDS: SODIUM CHLORIDE 0.9% FLUSH 10 ML FLUSH IV FLUSH SCH (09:00)
--- NOTE | 2017-04-28 11:14 | HHI.PR ---
Subjective Remarks Patient is alert confused unable to talk much. He mumbles a few words. Not agitated at present Unable to get any information from patient is at bedside Objective Objective Results - Vital Signs Date Time Temp Pulse Resp B/P (MAP) Pulse Ox O2 Delivery O2 Flow Rate FiO2 04/28/17 08:00 98.4 78 15 105/55 (72) 93 04/28/17 00:00 97.3 88 18 106/53 (70) 94 04/27/17 21:20 04/27/17 21:00 98 18 110/58 (75) 100 Room Air 04/27/17 19:05 96 18 109/66 (80) 98 Room Air 04/27/17 17:29 97.9 98 17 109/77 (88) 98 Room Air 04/27/17 15:25 88 17 98 Room Air 04/27/17 15:05 97.8 98 17 114/70 (85) 98 I/O 04/27/17 04/27/17 04/27/17 04/28/17 04/28/17 04/28/17 07:00 15:00 23:00 07:00 15:00 23:00 Intake Total 1118 ml 614 ml Balance 1118 ml 614 ml Intake IV Total 1118 ml 614 ml Result Diagram: 04/28/17 0425 04/28/17 0425 Imaging Last Impressions Hand X-Ray 04/27/17 0000 Signed Impressions: Service Date/Time: Thursday, April 27, 2017 15:23 - CONCLUSION: Anatomic alignment without significant fracture. Balaji Sinclair MD FACR Other Results Laboratory Tests Test 04/27/17 15:00 04/27/17 15:21 04/28/17 04:25 White Blood Count 10.2 9.0 Red Blood Count 4.89 4.41 Hemoglobin 14.2 13.0 Hematocrit 43.7 39.2 Mean Corpuscular Volume 89.5 88.8 Mean Corpuscular Hemoglobin 29.1 29.5 Mean Corpuscular Hemoglobin Concent 32.5 33.3 Red Cell Distribution Width 14.4 14.2 Platelet Count 195 163 Mean Platelet Volume 9.1 9.7 Neutrophils (%) (Auto) 80.8 78.0 Lymphocytes (%) (Auto) 9.0 12.4 Monocytes (%) (Auto) 9.7 8.9 Eosinophils (%) (Auto) 0.2 0.4 Basophils (%) (Auto) 0.3 0.3 Neutrophils # (Auto) 8.3 7.0 Lymphocytes # (Auto) 0.9 1.1 Monocytes # (Auto) 1.0 0.8 Eosinophils # (Auto) 0.0 0.0 Basophils # (Auto) 0.0 0.0 CBC Comment DIFF FINAL DIFF FINAL Differential Comment Blood Urea Nitrogen 90 100 Creatinine 5.11 5.45 Random Glucose 132 136 Total Protein 7.3 Albumin 3.6 Calcium Level 9.1 8.3 Alkaline Phosphatase 68 Aspartate Amino Transf (AST/SGOT) 34 Alanine Aminotransferase (ALT/SGPT) 34 Total Bilirubin 0.7 Sodium Level 161 161 Potassium Level 4.0 3.7 Chloride Level 125 126 Carbon Dioxide Level 25.5 22.9 Anion Gap 11 12 Estimat Glomerular Filtration Rate 11 10 Urine Color YELLOW Urine Turbidity CLEAR Urine pH 5.0 Urine Specific [place] 1.024 Urine Protein TRACE Urine Glucose (UA) NEG Urine Ketones TRACE Urine Occult Blood NEG Urine Nitrite NEG Urine Bilirubin SMALL Urine Urobilinogen 2.0 Urine Leukocyte Esterase SMALL Urine WBC 2 Microscopic Urinalysis Comment CULT NOT INDICATED Physical Exam Physical Exam GENERAL: This is a well-nourished, well-developed patient, in no apparent distress. SKIN: Skin is cool and dry. Multiple bruises are noted to upper extremities. HEAD: Atraumatic. Normocephalic. No temporal or scalp tenderness. EYES: No scleral icterus. ENT: Nose without bleeding, purulent drainage or septal hematoma. Throat without erythema, tonsillar hypertrophy or exudate. Uvula midline. Airway patent. NECK: Trachea midline. No JVD or lymphadenopathy. Supple, nontender, no meningeal signs. CARDIOVASCULAR: S1 and S2, irregular. Soft murmur. RESPIRATORY: Essentially clear, poor inspiratory effort. GASTROINTESTINAL: Abdomen soft, non-tender, nondistended. No hepato-splenomegaly , or palpable masses. No guarding. MUSCULOSKELETAL: Left hand no swelling. Intact sensation. No other joint abnormalities. NEUROLOGICAL: Patient is awake, nonverbal, just try to mumble a few words. Demented, not agitated at present. A/P Assessment and Plan (1) Acute renal failure ICD Codes: N17.9 - Acute kidney failure, unspecified Status: Acute (2) Closed traumatic PIP dislocation ICD Codes: S63.289A - Dislocation of proximal interphalangeal joint of unspecified finger, initial encounter Status: Acute (3) Fracture of fourth metacarpal bone of left hand ICD Codes: S62.305A - Unspecified fracture of fourth metacarpal bone, left hand , initial encounter for closed fracture Status: Acute (4) Hypernatremia ICD Codes: E87.0 - Hyperosmolality and hypernatremia Status: Acute (5) Dehydration ICD Codes: E86.0 - Dehydration Status: Acute (6) Dementia in other diseases classified elsewhere with behavioral disturbance ICD Codes: F02.81 - Dementia in other diseases classified elsewhere with behavioral disturbance Status: Acute (7) Atrial fibrillation ICD Codes: I48.91 - Atrial fibrillation Status: Chronic (8) Hyperlipidemia ICD Codes: E78.5 - Hyperlipidemia, unspecified Status: Chronic (9) PVD (peripheral vascular disease) ICD Codes: I73.9 - Peripheral vascular disease, unspecified Status: Chronic (10) HTN (hypertension) ICD Codes: I10 - Essential (primary) hypertension Status: Chronic (11) CAD (coronary artery disease) ICD Codes: I25.10 - Atherosclerotic heart disease of [place] coronary artery without angina pectoris Status: Chronic (12) DM type 2 (diabetes mellitus, type 2) ICD Codes: E11.9 - DM type 2 (diabetes mellitus, type 2) Status: Chronic Plan 81-year-old elderly male with history of dementia, PVD, hypertension. Presented for evaluation of left hand injury. Pt. apparently punched a wall, found with dislocation of the proximal interphalangeal joint left hand as well as displaced fracture of shaft of fourth metacarpal bone left hand. He is status post reduction. -Continue with splint -Continue neurovascular check Acute kidney injury with hypernatremia and dehydration -Was given 1 L of normal saline in the ER. Change IV fluids to D5 water at 42 an hour -Labs reviewed is still hypernatremic and dehydrated -BMP in the morning Dementia with agitation -Continue Ativan 1 mg IV push every 6 when necessary for agitation History of coronary artery disease- Hypertension Prior bradycardia PVD-possible smell vessel disease small vessel PVD with non healing 5th metatarsal ulceration, was on Plavix Atrial fibrillation -Hold medications at this time, patient is at risk for aspiration. Type 2 diabetes, on metformin. Will hold due to acute kidney injury -Continue to monitor SCDs for DVT prophylaxis Hold by mouth medications at this time, patient at risk for aspiration Overall poor prognosis, patient appears to have declined since most recent admission. End-of-life care issues discussed with the patient's at bedside and she is requesting DO NOT RESUSCITATE status She is agreeable with transitioning to comfort care and hospice services. Will get hospice consult. Discussed the case management assistant on the floor We'll hydrate overnight and repeat BMP in the morning. Patient is accepted at the hospice care center, he will likely be discharged tomorrow Discussed with RN Discussed with in detail Lazaro Sanchez MD Apr 28, 2017 11:14
[2017-04-28] MEDS: DEXTROSE 5% IN WATE 1000ML INJ 1,000 ML IV SCH (11:22)
[2017-04-28 12:00] VITALS: BP 101/62; PULSE 98; RESP 16; TEMP 98; O2SAT 94
[2017-04-28 16:00] VITALS: BP 104/68; PULSE 71; RESP 16; TEMP 98.8; O2SAT 95
== END 2017-04-28 18:45 | disposition hospice, inpatient (51) | DRG 683 ==
LOC: NEPC 14:51 → NEDA 17:36 → N07A 21:31
PROVIDERS: ADMIT Specialist; ATTEND Specialist
PROC: 0RSXXZZ Reposition Left Finger Phalangeal Joint, External Approach (ICD-10-PCS; principal; 2017-04-27)
DX: N17.9 Acute kidney failure, unspecified (principal); E87.0 Hyperosmolality and hypernatremia; E11.51 Type 2 diabetes mellitus with diabetic peripheral angiopathy without gangrene; F03.91 Unspecified dementia, unspecified severity, with behavioral disturbance; E86.0 Dehydration; I48.0 Paroxysmal atrial fibrillation; E11.22 Type 2 diabetes mellitus with diabetic chronic kidney disease; E78.5 Hyperlipidemia, unspecified; I25.2 Old myocardial infarction; I12.9 Hypertensive chronic kidney disease with stage 1 through stage 4 chronic kidney disease, or unspecified chronic kidney disease; I25.10 Atherosclerotic heart disease of native coronary artery without angina pectoris; S62.325A Displaced fracture of shaft of fourth metacarpal bone, left hand, initial encounter for closed fracture; S63.283A Dislocation of proximal interphalangeal joint of left middle finger, initial encounter; Z51.5 Encounter for palliative care; N18.9 Chronic kidney disease, unspecified; W22.8XXA Striking against or struck by other objects, initial encounter; Y92.129 Unspecified place in nursing home as the place of occurrence of the external cause; Z87.891 Personal history of nicotine dependence; Z79.84 Long term (current) use of oral hypoglycemic drugs; Z88.8 Allergy status to other drugs, medicaments and biological substances
CPT/HCPCS: 26770; 73120; 80048; 80053; 81001; 82948; 85025; J1644; J2060; J7030; J7070; P9612